=== PATIENT | female | born 1955 | race Caucasian/White ===

== ENCOUNTER 2017-03-22 15:25 | Emergency (ER) | payer SELFPAY ==
[~2017-03-22] VITALS: Ht 162.6 cm; Wt 78.5 kg
[~2017-03-22 15:25] MED LIST: BEN50 PO; BUPR100T14 PO; IBUP800T25 PO; NIFE30TA60 PO
[2017-03-22 15:41] VITALS: Ht 162.6 cm; Wt 78.5 kg
== END 2017-03-22 23:25 | disposition left against medical advice (07) ==
LOC: E/R 15:25
DX: Z53.21 Procedure and treatment not carried out due to patient leaving prior to being seen by health care provider (principal)

== ENCOUNTER 2017-07-03 11:24 | Emergency (ER) | payer OTHER ==
[~2017-07-03] VITALS: Ht 154.9 cm; Wt 77.0 kg
[2017-07-03 11:29] VITALS: Ht 154.9 cm; Wt 77.0 kg
[2017-07-03] MEDS ORDERED: HYD25 PO (17:30)
[2017-07-03] MEDS ORDERED: OXYCODONE/ACETAMINOPHEN (5/325) TAB PO ONE (17:30)
[2017-07-03] MEDS ORDERED: NIFE30TA60 PO (17:30)
[2017-07-03] MEDS ORDERED: NICARDipine HCL 30 MG CAPSULE PO ONE (17:30)
--- NOTE | 2017-07-03 17:46 | ERD ---
ER Documentation Chief Complaint Date/Time DATE: 07/03/17 TIME: 17:42 Chief Complaint SEND BY PCP , LEFT LOWER QUADRANT PAIN, BLOATED; AND HIGH BLOOD PRESSURE HPI 61-year-old woman here for antihypertensive medication refill. She has a long history of hypertension but ran out of her medications a few weeks ago. Patient also has a history of chronic pain and wants a prescription for opioid analgesics. She denies abdominal pain, no fevers or chills, no chest pain or shortness of breath, no headache or blurry vision. ROS All systems reviewed and are negative except as per history of present illness. Medications Home Meds Active Scripts Nifedipine* (Nifedipine ER*) 30 Mg Tablet.sa, 30 MG PO DAILY, #30 TAB.SA Prov:PORTIA GLOVER MD 07/03/17 Hydrochlorothiazide* (Hydrochlorothiazide*) 25 Mg Tab, 25 MG PO DAILY, #30 TAB Prov:PORTIA GLOVER MD 07/03/17 Ibuprofen* (Motrin*) 800 Mg Tab, 800 MG PO Q6H Y for PAIN AND OR ELEVATED TEMP, #30 TAB Prov:YANELY AGUIRRE SORTER LAUNDRY ARTICLES 06/05/15 Reported Medications Bupropion Hcl* (Bupropion Hcl*) 100 Mg Tablet, 100 MG PO TID, TAB 07/29/14 Diphenhydramine Hcl* (Benadryl*) 50 Mg Cap, 50 MG PO HS for ITCHING, CAP 07/29/14 Nifedipine* (Nifedipine ER*) 30 Mg Tablet.sa, 30 MG PO DAILY, TAB.SA 07/29/14 Allergies Allergies: Coded Allergies: fentanyl (Verified Allergy, Unknown, 07/29/14) HALLUCINATION risperidone (Verified Allergy, Unknown, 07/29/14) PMhx/Soc Psychiatric illness, hypertension, chronic pain History of Surgery: Yes (TOBAL LIGATION; C SECTION) Anesthesia Reaction: No Hx Neurological Disorder: No Hx Respiratory Disorders: No Hx Cardiac Disorders: Yes (HTN) Hx Psychiatric Problems: No Hx Miscellaneous Medical Probl: No Hx Alcohol Use: No Hx Substance Use: No Hx Tobacco Use: Yes Smoking Status: Never smoker FmHx Family History: No diabetes Physical Exam Vitals Vital Signs Date Time Temp Pulse Resp B/P Pulse Ox O2 Delivery O2 Flow Rate FiO2 07/03/17 13:24 76 180/109 07/03/17 11:29 98.3 83 19 193/96 97 Physical Exam GENERAL: Well-developed, well-nourished, well-hydrated, in no apparent distress , looks nontoxic in appearance HEENT: Moist mucous membranes, pink conjunctiva, no cervical spine tenderness or step-off deformities, no goiter, no jaundice or icterus, extraocular movements intact without pain. No submandibular induration, and no pharyngeal erythema NEURO: Alert and oriented 3, cranial nerves II through XII intact bilaterally, pupils equal round reactive to light, no focal deficits or facial asymmetry, sensation intact distally Strength 5/5 in upper and lower extremities bilaterally CARDIAC: Regular rate and rhythm, no murmurs rubs or gallops LUNGS: Clear bilaterally no wheezing crackles or stridor ABDOMEN: Soft nontender, no guarding, no rigidity, no rebound, no psoas sign no obturator sign. Normoactive bowel sounds SKIN: Warm and dry to touch, no abrasions, contusions, or hematomas, no lacerations, no ecchymosis, no target lesions, and without ulcers EXTREMITIES: No clubbing cyanosis or edema, calves are bilaterally symmetrical, no Homans sign, no popliteal cord sign. Distal pulses equal and bilateral PSYCH: Normal affect without agitation or irritability Results 24 hrs Current Medications Medications (Trade) Dose Ordered Sig/Adela Route PRN Reason Start Time Stop Time Status Last Admin Dose Admin Oxycodone/ Acetaminophen (Percocet (5/ 325)) 1 tab ONCE ONCE PO 07/03/17 17:30 07/03/17 17:31 DC 07/03/17 17:37 Clonidine (Catapres) 0.1 mg ONCE ONCE PO 07/03/17 17:30 07/03/17 17:31 DC 07/03/17 17:37 Nicardipine HCl (Cardene) 30 mg ONCE ONCE PO 07/03/17 17:30 07/03/17 17:31 DC 07/03/17 17:37 Procedures/MDM Patient was placed on director of cardiac rehabilitation rhythm strip revealed a sinus rhythm at about 80 bpm with upright P and T waves. Patient was afebrile. I administered Percocet 1 tablet p.o. for chronic pain, clonidine 0.1 mg p.o. and nicardipine 30 mg p.o. for hypertension with an initial diastolic blood pressure of over use of mercury. EKG performed, read by me revealed a normal sinus rhythm at 77 bpm, left axis deviation and a right bundle branch block, no concerning ST elevations or depressions noted. Patient's blood pressure improved, systolic diastolic pressures fell over 20 points, patient remains asymptomatic and has no complaints of pain at this time. She will be discharged to follow-up with PMD for continued outpatient management. Differential diagnoses considered, included but not limited to acute coronary syndrome, pulmonary embolism, aortic dissection, abdominal aortic aneurysm, sepsis, stroke, meningitis, encephalitis, pneumonia, appendicitis, cholecystitis , bowel obstruction, pyelonephritis, nephrolithiasis, cystitis, as well as metabolic, hematologic, and electrolyte abnormalities. As well as abscess, cellulitis, fractures, and dislocations. Patient feels much better at this time, and vital signs are normal, symptoms have improved. I did give strict instructions to return to the ED if symptoms continue or worsen, patient will otherwise follow-up with primary care physician. Patient understood instructions and agreed to plan. Disclaimer: Inadvertent spelling and grammatical errors are likely due to EHR/ dictation software use and do not reflect on the overall quality of patient care. Also, please note that the electronic time recorded on this note does not necessarily reflect the actual time of the patient encounter. Departure Diagnosis: Primary Impression: Hypertensive crisis Additional Impression: Chronic pain Chronic pain type: chronic pain syndrome Qualified Code: G89.4 - Chronic pain syndrome Condition: Good Patient Instructions: High Blood Pressure (Hypertension) PORTIA GLOVER MD Jul 03, 2017 17:46
[2017-07-03 17:50] VITALS: BP 170/98; PULSE 72; RESP 18; TEMP 98
== END 2017-07-03 17:58 | disposition home or self-care (01) ==
LOC: E/R 11:24
DX: I16.9 Hypertensive crisis, unspecified (principal); G89.4 Chronic pain syndrome; I10 Essential (primary) hypertension; Z87.891 Personal history of nicotine dependence
CPT/HCPCS: Z7502; Z7610

== ENCOUNTER 2017-07-15 12:23 | Emergency (ER) | payer OTHER ==
[~2017-07-15] VITALS: Ht 160 cm; Wt 89.0 kg
[~2017-07-15 12:23] MED LIST changes: +HYDR25TA6 PO
[2017-07-15 12:28] VITALS: Ht 160 cm; Wt 89.0 kg
[2017-07-15] MEDS ORDERED: HYDROCODONE/APAP (5/325) TAB PO ONE ×2 (17:30→21:00)
--- NOTE | 2017-07-15 17:39 | ERD ---
ER Documentation Chief Complaint Date/Time DATE: 07/15/17 TIME: 17:36 Chief Complaint PELVIC PAIN X 2 MOS HPI Patient is a 61-year-old female who presents to the ER after having a hysteroscopy today to investigate chronic pelvic pain for the last 2 months. She reports having subjective fevers at night, as well as intermittent vomiting over the last 2 months. She denies vaginal discharge or dysuria. She had a scheduled hysteroscopy, and states that the physician performing the procedure, Dr. Garcia, commented that it appeared that she had infection in the uterus. The procedure was performed at [facility]. ROS All systems reviewed and are negative except as per history of present illness. Medications Home Meds Active Scripts Tramadol HCl (Tramadol HCl) 50 Mg Tablet, 50 MG PO Q6 Y for PAIN, #14 TAB Prov:JENNIFER EUBANKS MD 07/15/17 Nifedipine* (Nifedipine ER*) 30 Mg Tablet.sa, 30 MG PO DAILY, #30 TAB.SA Prov:PORTIA GLOVER MD 07/03/17 Hydrochlorothiazide* (Hydrochlorothiazide*) 25 Mg Tab, 25 MG PO DAILY, #30 TAB Prov:PORTIA GLOVER MD 07/03/17 Reported Medications Albuterol Sulfate (Proair Respiclick) 90 Mcg Aer.pow.ba, 1 PUFF INHALATION Q4 Y for NEEDED, #1 BOTTLE 07/15/17 Vitamin B Complex (Vitamin B Complex) 1 Each Capsule, 1 EACH PO DAILY, CAP 07/15/17 Discontinued Reported Medications Bupropion Hcl* (Bupropion Hcl*) 100 Mg Tablet, 100 MG PO TID, TAB 07/29/14 Diphenhydramine Hcl* (Benadryl*) 50 Mg Cap, 50 MG PO HS for ITCHING, CAP 07/29/14 Nifedipine* (Nifedipine ER*) 30 Mg Tablet.sa, 30 MG PO DAILY, TAB.SA 07/29/14 Discontinued Scripts Ibuprofen* (Motrin*) 800 Mg Tab, 800 MG PO Q6H Y for PAIN AND OR ELEVATED TEMP, #30 TAB Prov:YANELY AGUIRRE ALLOCATIONS CLERK 06/05/15 Allergies Allergies: Coded Allergies: fentanyl (Verified Allergy, Unknown, 07/15/17) HALLUCINATION risperidone (Verified Allergy, Unknown, 07/15/17) PMhx/Soc Past medical history: Unknown cardiac disorder, hypertension, chronic pain syndrome Past surgical history: Ectopic 2 Social history: Smokes cigarettes, denies alcohol or illicit drugs History of Surgery: Yes (TOBAL LIGATION; C SECTION) Anesthesia Reaction: No Hx Neurological Disorder: No Hx Respiratory Disorders: No Hx Cardiac Disorders: Yes (HTN) Hx Psychiatric Problems: No Hx Miscellaneous Medical Probl: No Hx Alcohol Use: No Hx Substance Use: No Hx Tobacco Use: Yes FmHx Family History: No coronary disease, No diabetes Physical Exam Vitals Vital Signs Date Time Temp Pulse Resp B/P Pulse Ox O2 Delivery O2 Flow Rate FiO2 07/15/17 22:24 89 16 145/86 98 Room Air 07/15/17 20:26 98 16 154/91 97 Room Air 07/15/17 12:28 98.0 100 18 159/89 99 Physical Exam Const: Alert, appears slightly anxious Head: Atraumatic Eyes: Normal Conjunctiva, No pallor, no icterus ENT: Normal External Ears, Nose and Mouth.These membranes moist Neck: Full range of motion..~ No meningismus. Resp: Clear to auscultation bilaterally, No wheezes, no rales Cardio: Regular rate and rhythm, no murmurs Abd: Soft, No tenderness with distraction, no guarding or rebound, nondistended Pelvic: Normal vaginal mucosa, normal cervix with closed office, no discharge or tenderness. Skin: No petechiae or rashes Back: No midline or flank tenderness Ext: No cyanosis, or edema Neur: Awake and alert, Cranial nerves II through XII intact bilaterally, strength and sensation full in 4 extremities. Psych: Normal Mood and Affect Result Diagram: 07/15/17 1748 07/15/17 1748 Results 24 hrs Laboratory Tests Test 07/15/17 17:48 07/15/17 17:50 White Blood Count 5.610^3/ul Red Blood Count 4.1410^6/ul Hemoglobin 14.2g/dl Hematocrit 39.1% Mean Corpuscular Volume 94.4fl Mean Corpuscular Hemoglobin 34.3pg Mean Corpuscular Hemoglobin Concent 36.3g/dl Red Cell Distribution Width 11.2% Platelet Count 22972^3/UL Mean Platelet Volume 10.5fl Neutrophils % 57.5% Lymphocytes % 31.0% Monocytes % 8.0% Eosinophils % 2.7% Basophils % 0.4% Nucleated Red Blood Cells % 0.0/100WBC Neutrophils # 3.210^3/ul Lymphocytes # 1.710^3/ul Monocytes # 0.510^3/ul Eosinophils # 0.210^3/ul Basophils # 0.010^3/ul Nucleated Red Blood Cells # 0.010^3/ul Sodium Level 139mmol/L Potassium Level 3.3mmol/L Chloride Level 100mmol/L Carbon Dioxide Level 24mmol/L Anion Gap 18 Blood Urea Nitrogen 16mg/dl Creatinine 0.92mg/dl Glucose Level 95mg/dl Calcium Level 9.9mg/dl Urine Color YELLOW Urine Clarity CLEAR Urine pH 6.0 Urine Specific [place] 1.006 Urine Ketones NEGATIVEmg/dL Urine Nitrite NEGATIVEmg/dL Urine Bilirubin NEGATIVEmg/dL Urine Urobilinogen 1+mg/dL Urine Leukocyte Esterase NEGATIVELeu/ul Urine Hemoglobin NEGATIVEmg/dL Urine Glucose NEGATIVEmg/dL Urine Total Protein NEGATIVEmg/dl Current Medications Medications (Trade) Dose Ordered Sig/Adela Route PRN Reason Start Time Stop Time Status Last Admin Dose Admin Acetaminophen/ Hydrocodone Bitart (Norris (5/325)) 1 tab ONCE ONCE PO 07/15/17 17:30 07/15/17 17:33 DC 07/15/17 17:45 Acetaminophen/ Hydrocodone Bitart (Norris (5/325)) 1 tab ONCE ONCE PO 07/15/17 21:00 07/15/17 21:01 DC 07/15/17 20:35 Potassium Chloride (Klor-Con 20) 20 meq ONCE STAT PO 07/15/17 20:31 07/15/17 20:34 DC 07/15/17 20:34 Procedures/MDM MDM: Patient is a 61-year-old female who presents with 2 months of pelvic pain. She states that she had a hysteroscopy today and was sent to the ER due to concern for possible infection in the uterus. I attempted to contact the physician performing the procedure, but the clinic was closed and I was unable to contact him. The patient does not have any fevers, has a benign pelvic exam and wet mount without any WBCs. She has normal white blood cell count. Urinalysis is negative. Ultrasound shows atrophic endometrium with slight thickening. Given the patient's chronicity of symptoms and lack of objective findings to suggest infection, I believe the patient is stable for further workup and treatment as an outpatient. I advised her to call Dr. Garcia tomorrow to discuss these findings and to arrange for further care. If the patient does require further care as an inpatient, advised that her specialist contact the ER to explain why she cannot receive further workup and treatment as an outpatient. I do not see any indication for antibiotics at this time. The patient does have for prior narcotic prescriptions in [place]. I will give her a short course of tramadol approximately 3 days for pain. Departure Diagnosis: Primary Impression: Pelvic pain in female Condition: Stable JENNIFER EUBANKS MD Jul 15, 2017 17:39
[2017-07-15 18:03] LABS: BASOPHILS % 0.4 % (0.0-2.0); EOSINOPHILS # 0.2 10^3/ul (0.0-0.5); EOSINOPHILS % 2.7 % (0.0-7.0); HEMATOCRIT 39.1 % (37.0-47.0); HEMOGLOBIN 14.2 g/dl (12.0-16.0); LYMPHOCYTES # 1.7 10^3/ul (0.8-2.9); MEAN CORPUSCULAR HEMOGLOBIN 34.3 pg (29.0-33.0); MEAN CORPUSCULAR HGB CONC 36.3 g/dl (32.0-37.0); MEAN CORPUSCULAR VOLUME 94.4 fl (82.0-101.0); MEAN PLATELET VOLUME 10.5 fl (7.4-10.4); MONOCYTE # 0.5 10^3/ul (0.3-0.9); NEUTROPHIL # 3.2 10^3/ul (1.6-7.5); NEUTROPHILS % 57.5 % (39.0-77.0); PLATELET COUNT 162 10^3/UL (140-415); RED BLOOD COUNT 4.14 10^6/ul (4.20-5.40); RED CELL DISTRIBUTION WIDTH 11.2 % (11.5-14.5); WHITE BLOOD COUNT 5.6 10^3/ul (4.8-10.8)
[2017-07-15 18:11] LABS: ADD UMIC NO; UR ASCORBIC ACID NEGATIVE (NEGATIVE); UR BILIRUBIN (Dip) NEGATIVE (NEGATIVE); UR BLOOD (Dip) NEGATIVE (NEGATIVE); UR CLARITY CLEAR (CLEAR); UR COLOR YELLOW (YELLOW); UR GLUCOSE (Dip) NEGATIVE (NEGATIVE); UR KETONES (Dip) NEGATIVE (NEGATIVE); UR LEUKOCYTE ESTERASE (Dip) NEGATIVE Leu/ul (NEGATIVE); UR NITRITE (Dip) NEGATIVE (NEGATIVE); UR SPECIFIC GRAVITY (Dip) 1.006 (1.003-1.030); UR TOTAL PROTEIN (Dip) NEGATIVE (NEGATIVE); UR UROBILINOGEN (Dip) 1+ mg/dL (NEGATIVE)
[2017-07-15 18:26] LABS: CALCIUM 9.9 mg/dl (8.4-10.2); CREATININE 0.92 mg/dl (0.44-1.00); POTASSIUM 3.3 mmol/L (3.5-5.1)
[2017-07-15] MEDS ORDERED: VITA1CAP PO (18:59)
[2017-07-15] MEDS ORDERED: ALBU90AE INHALATION (19:00)
--- NOTE | 2017-07-15 19:17 | RADRPT ---
PROCEDURE: Pelvic ultrasound. CLINICAL INDICATION: Pelvic pain TECHNIQUE: Liu scale, color doppler, spectral doppler ultrasound of the pelvis was performed with transabdominal and transvaginal transducers. COMPARISON: No prior studies are available for comparison. FINDINGS: Uterus: Position: Anteverted. Normal myometrial echogenicity. Normal appearance of the endometrium. Ovaries: Not visualized by the project construction manager. Free fluid: None. Measurements: Endometrium (cm): 0.5 Uterus (cm): 5.1 x 2.1 x 2.2 IMPRESSION: Atrophic appearance of the uterus with upper limits of normal endometrial thickness. Ovaries not identified by the project construction manager. RPTAT: AADD .Pierre Thompson MD, MD Date Time Electronically viewed and signed by .Pierre Thompson MD, on 07/15/2017 19:17 .B/
[2017-07-15] MEDS ORDERED: POTASSIUM CHLORIDE (SR) 20 MEQ TAB PO STA (20:31)
[2017-07-15 22:24] VITALS: BP 145/86; PULSE 89; RESP 16
[2017-07-15] MEDS ORDERED: TRAM50TA2 PO (22:45)
== END 2017-07-16 00:05 | disposition home or self-care (01) ==
LOC: E/R 12:23
DX: R10.2 Pelvic and perineal pain (principal); I10 Essential (primary) hypertension; F17.210 Nicotine dependence, cigarettes, uncomplicated
CPT/HCPCS: 36415; 76830; 76856; 80048; 81003; 85025; 87081; 87210; 87220; Z7502; Z7610

== ENCOUNTER 2017-08-04 00:31 | Inpatient (IN) | payer OTHER ==
[~2017-08-04] VITALS: Ht 154.9 cm; Wt 76.0 kg
[~2017-08-04 00:31] MED LIST changes: +ALBU90AE INHALATION; -BEN50 PO; -BUPR100T14 PO; -IBUP800T25 PO; +TRAM50TA2 PO; +VITA1CAP PO
[2017-08-04 00:35] VITALS: BP 138/73; PULSE 110; RESP 19
[2017-08-04 01:27] VITALS: Ht 154.9 cm; Wt 76.0 kg
[2017-08-04] MEDS: LORAZEPAM 1 MG TAB PO PRN ×2 (02:14→21:08)
[2017-08-04] MEDS: ACETAMINOPHEN 325 MG TAB PO PRN ×3 (02:14→16:58)
[2017-08-04 05:39] LABS: BASOPHILS % 0.3 % (0.0-2.0); HEMATOCRIT 38.2 % (37.0-47.0); HEMOGLOBIN 13.5 g/dl (12.0-16.0); LYMPHOCYTES # 0.7 10^3/ul (0.8-2.9); LYMPHOCYTES % 6.2 % (15.0-51.0); MEAN CORPUSCULAR HEMOGLOBIN 33.9 pg (29.0-33.0); MEAN CORPUSCULAR HGB CONC 35.3 g/dl (32.0-37.0); MEAN PLATELET VOLUME 10.6 fl (7.4-10.4); MONOCYTE # 0.6 10^3/ul (0.3-0.9); MONOCYTES % 5.3 % (0.0-11.0); NEUTROPHILS % 87.8 % (39.0-77.0); PLATELET COUNT 141 10^3/UL (140-415); RED BLOOD COUNT 3.98 10^6/ul (4.20-5.40); RED CELL DISTRIBUTION WIDTH 11.5 % (11.5-14.5); WHITE BLOOD COUNT 11.4 10^3/ul (4.8-10.8)
[2017-08-04 06:13] LABS: ALBUMIN 3.7 g/dl (3.3-4.9); ALBUMIN/GLOBULIN RATIO 0.94; BILIRUBIN,INDIRECT 1.1 mg/dl (0-1.1); BILIRUBIN,TOTAL 1.1 mg/dl (0.2-1.3); CALCIUM 8.5 mg/dl (8.4-10.2); CREATININE 0.58 mg/dl (0.44-1.00); PHOSPHORUS 3.1 mg/dl (2.5-4.9); POTASSIUM 3.2 mmol/L (3.5-5.1); TOTAL PROTEIN 7.6 g/dl (6.1-8.1)
[2017-08-04 06:28] LABS: MAGNESIUM 0.8 mg/dl (1.7-2.5)
[2017-08-04] MEDS ORDERED: POTASSIUM CHLORIDE (SR) 20 MEQ TAB PO STA (06:47)
--- NOTE | 2017-08-04 06:54 | HP ---
Date/Time of Note Date/Time of Note DATE: 08/04/17 TIME: 06:51 Assessment/Plan VTE Prophylaxis VTE Prophylaxis Intervention: SCD's Lines/Catheters IV [facility]ter Type (from [facility] Saline Lock Urinary Cath still in place: No Assessment/Plan Assessment/Plan 1. UTI with probable pyelonephritis -Check UA, urine culture and blood culture -IV antibiotic -Renal ultrasound -Pain management 2. Alcohol intoxication/withdrawal -IVF, Banana bag - Librium -as needed Ativan 3.Severe hypomagnesemia -Replete 4. Hypokalemia -Replete 5. History of hypertension -Continue antihypertensives adjustment as needed HPI/ROS Admit Date/Time Admit Date/Time Aug 04, 2017 at 00:31 Hx of Present Illness This is a 61-year-old female with a history of hypertension, alcohol abuse and left eye blindness who initially presented on outside hospital complaining of dysuria and flank pain. Patient was diagnosed with pyelonephritis and was transferred to [facility] for insurance reason. She had a temp of 102, WBC was 8.5. She also reported that she had been drinking vodka on a daily basis and now she has been feeling anxious and tremors PMH/Family/Social Past Medical History Medical History: hypertension Social History Alcohol Use: occasionally Smoking Status: Unknown if ever smoked Drug Use: none Exam/Review of Systems Vital Signs Vitals Vital Signs Date Time Temp Pulse Resp B/P Pulse Ox O2 Delivery O2 Flow Rate FiO2 08/04/17 00:35 100.2 110 19 138/73 95 Room Air Intake and Output 08/03/17 08/03/17 08/04/17 15:00 23:00 07:00 Intake Total 700 ml Balance 700 ml Exam Constitutional: alert, oriented, well developed Head: atraumatic, normocephalic Eyes: EOMI, PERRL Respiratory: clear to auscultation, normal air movement Cardiovascular: nl pulses, regular rate and rhythm Gastrointestinal: soft Extremities: normal pulses Labs Result Diagram: 08/04/1743108/04/17431 Medications Medications Current Medications Hydrochlorothiazide (Hydrochlorothiazide) 25 mg DAILY PO ; Start 08/04/17 at 09 :00 Nifedipine 30 mg 30 mg DAILY PO ; Start 08/04/17 at 09:00 Ceftriaxone Sodium (Rocephin) 50 ml @ 100 mls/hr BID IVPB ; Start 08/04/17 at 09:00 Lorazepam (Ativan) 1 mg Q6H PRN PO ANXIETY Last administered on 08/04/17 02: 14; Admin Dose 1 MG; Start 08/04/17 at 02:00 Morphine Sulfate (morphine) 3 mg Q4H PRN IV PAIN; Start 08/04/17 at 02:00 Heparin Sodium (Porcine) (Heparin (5000 Units/0.5 ml)) 5,000 unit BID SC ; Start 08/04/17 at 09:00 Acetaminophen (Tylenol Tab) 650 mg Q6H PRN PO PAIN AND OR ELEVATED TEMP Last administered on 08/04/17 02:14; Admin Dose 650 MG; Start 08/04/17 at 02:00 RANDALL HUTTON MD Aug 04, 2017 06:54
[2017-08-04 07:59] VITALS: BP 161/89; RESP 19
[2017-08-04] MEDS ORDERED: MAGNESIUM SULFATE IV ONE (08:00)
[2017-08-04] MEDS ORDERED: SOD CHLORIDE 0.9% IV ONE (08:00)
[2017-08-04] MEDS: LORAZEPAM 2 MG INJ IV PRN ×4 (08:10→17:40)
[2017-08-04 08:27] LABS: ADD UMIC YES; UR ASCORBIC ACID NEGATIVE (NEGATIVE); UR BILIRUBIN (Dip) NEGATIVE (NEGATIVE); UR BLOOD (Dip) NEGATIVE (NEGATIVE); UR CLARITY CLEAR (CLEAR); UR COLOR YELLOW (YELLOW); UR GLUCOSE (Dip) NEGATIVE (NEGATIVE); UR KETONES (Dip) NEGATIVE (NEGATIVE); UR LEUKOCYTE ESTERASE (Dip) TRACE Leu/ul (NEGATIVE); UR NITRITE (Dip) NEGATIVE (NEGATIVE); UR RBC 1 /HPF (0-5); UR SPECIFIC GRAVITY (Dip) 1.008 (1.003-1.030); UR TOTAL PROTEIN (Dip) NEGATIVE (NEGATIVE); UR UROBILINOGEN (Dip) 1+ mg/dL (NEGATIVE)
--- NOTE | 2017-08-04 08:43 | RADRPT ---
PROCEDURE: Retroperitoneal US. CLINICAL INDICATION: Flank pain, pyelonephritis TECHNIQUE: Multiple sonographic images of the kidneys and retroperitoneum were obtained. The imag es were reviewed on a PACS workstation. COMPARISON: No prior studies are available for comparison. FINDINGS: The kidneys are normal in size, contour, cortical thickness and cortical echogenicity. The right kidney measures 10.6 cm. The left kidney measures 11.1 cm. No kidney stones are visualized. There is minimal right-sided hydronephrosis. The urinary bladder is decompressed and not well seen. RPTAT: AA IMPRESSION: Minimal right-sided hydronephrosis. .Ankush Sands MD, MD Date Time Electronically viewed and signed by .Ankush Sands MD, on 08/04/2017 08:42 .S/
[2017-08-04] MEDS: NIFEdipine (XL) 30 MG TAB PO SCH (09:00)
[2017-08-04] MEDS: HYDROCHLOROTHIAZIDE 25 MG TAB PO SCH (09:00)
[2017-08-04] MEDS ORDERED: MULTIVITAMINS 10 ML, THIAMINE 100 MG, FOLIC ACID 1 MG in SOD CHLORIDE 0.9% 1,000 ML IVPB SCH (09:00)
[2017-08-04] MEDS: CHLORDIAZEPOXIDE 25 MG CAP PO SCH ×2 (09:00→12:38)
[2017-08-04] MEDS: CEFTRIAXONE 1 GM/50 ML (PMX) 50 ML IVPB SCH ×2 (09:01→21:07)
[2017-08-04] MEDS: HEPARIN 5,000 UNIT/0.5 ML VIAL SC SCH ×2 (09:02→21:09)
[2017-08-04 14:00] VITALS: BP 137/72; RESP 78
--- NOTE | 2017-08-04 18:24 | PN ---
Date/Time of Note Date/Time of Note DATE: 08/04/17 TIME: 18:22 Assessment/Plan VTE Prophylaxis VTE Prophylaxis Intervention: SCD's Lines/Catheters [facility] Saline Lock Urinary Cath still in place: No Assessment/Plan Assessment/Plan 61 yo F transferred from OSH for pyelo, ?EtOH abuse. PLAN cont empiric ceftriaxone pending further culture data PRN benzos. of note, none of pt's frequent ER visit notes mention EtOH abuse. Will attempt to speak with pt tomorrow for clarification MVI/thiamine/folate Subjective 24 Hr Interval Summary Free Text/Dictation Pt sleeping very soundly at time of my attempted eval this afternoon Exam/Review of Systems Vital Signs Vitals Vital Signs Date Time Temp Pulse Resp B/P Pulse Ox O2 Delivery O2 Flow Rate FiO2 08/04/17 14:00 98.2 93 78 137/72 97 08/04/17 00:35 Room Air Intake and Output 08/03/17 08/03/17 08/04/17 15:00 23:00 07:00 Intake Total 700 ml Balance 700 ml Exam nad, sleeping resp nonlabored no abd distension no edema no rashes imaging with mild pyelo Results Result Diagram: 08/04/17 0432 08/04/17 0432 Results 24 hrs Laboratory Tests Test 08/04/17 04:32 08/04/17 06:00 White Blood Count 11.4 #H Red Blood Count 3.98 L Hemoglobin 13.5 Hematocrit 38.2 Mean Corpuscular Volume 96.0 Mean Corpuscular Hemoglobin 33.9 H Mean Corpuscular Hemoglobin Concent 35.3 Red Cell Distribution Width 11.5 Platelet Count 141 Mean Platelet Volume 10.6 H Neutrophils % 87.8 H Lymphocytes % 6.2 L Monocytes % 5.3 Eosinophils % 0.0 Basophils % 0.3 Nucleated Red Blood Cells % 0.0 Neutrophils # 10.0 H Lymphocytes # 0.7 L Monocytes # 0.6 Eosinophils # 0.0 Basophils # 0.0 Nucleated Red Blood Cells # 0.0 Sodium Level 141 Potassium Level 3.2 L Chloride Level 103 Carbon Dioxide Level 26 Anion Gap 15 Blood Urea Nitrogen 7 Creatinine 0.58 Glucose Level 141 Calcium Level 8.5 Phosphorus Level 3.1 Magnesium Level 0.8 *L Total Bilirubin 1.1 Direct Bilirubin 0.00 Indirect Bilirubin 1.1 Aspartate Amino Transf (AST/SGOT) 146 H Alanine Aminotransferase (ALT/SGPT) 152 H Alkaline Phosphatase 52 Total Protein 7.6 Albumin 3.7 Globulin 3.90 H Albumin/Globulin Ratio 0.94 Urine Color YELLOW Urine Clarity CLEAR Urine pH 7.0 Urine Specific [place] 1.008 Urine Ketones NEGATIVE Urine Nitrite NEGATIVE Urine Bilirubin NEGATIVE Urine Urobilinogen 1+ H Urine Leukocyte Esterase TRACE A Urine Microscopic RBC 1 Urine Microscopic WBC 25 H Urine Hemoglobin NEGATIVE Urine Glucose NEGATIVE Urine Total Protein NEGATIVE Medications Medications Current Medications Hydrochlorothiazide (Hydrochlorothiazide) 25 mg DAILY PO Last administered on 08/04/17 09:00; Admin Dose 25 MG; Start 08/04/17 at 09:00 Nifedipine 30 mg 30 mg DAILY PO Last administered on 08/04/17 09:00; Admin Dose 30 MG; Start 08/04/17 at 09:00 Ceftriaxone Sodium (Rocephin) 50 ml @ 100 mls/hr BID IVPB Last administered on 08/04/17 09:01; Admin Dose 100 MLS/HR; Start 08/04/17 at 09:00 Lorazepam (Ativan) 1 mg Q6H PRN PO ANXIETY Last administered on 08/04/17 02: 14; Admin Dose 1 MG; Start 08/04/17 at 02:00 Morphine Sulfate (morphine) 3 mg Q4H PRN IV PAIN; Start 08/04/17 at 02:00 Heparin Sodium (Porcine) (Heparin (5000 Units/0.5 ml)) 5,000 unit BID SC Last administered on 08/04/17 09:02; Admin Dose 5,000 UNIT; Start 08/04/17 at 09: 00 Acetaminophen (Tylenol Tab) 650 mg Q6H PRN PO PAIN AND OR ELEVATED TEMP Last administered on 08/04/17 16:58; Admin Dose 650 MG; Start 08/04/17 at 02:00 Chlordiazepoxide (Librium) 75 mg TID PO Last administered on 08/04/17 12:38; Admin Dose 75 MG; Start 08/04/17 at 09:00; Stop 08/05/17 at 08:59 Lorazepam (Ativan) 2 mg Q1H PRN IV etoh withdrawal Last administered on 17:40; Admin Dose 2 MG; Start 08/04/17 at 08:00 Folic Acid (Folic Acid) 1 mg DAILY PO ; Start 08/05/17 at 09:00 Thiamine HCl (Vitamin B1) 100 mg DAILY PO ; Start 08/05/17 at 09:00 Multivitamins Therapeutic (Theragran) 1 tab DAILY PO ; Start 08/05/17 at 09:00 KELLEN FAYE MD Aug 04, 2017 18:24
[2017-08-04 20:32] VITALS: BP 128/73; RESP 16
[2017-08-04] MEDS: morphine 4 MG/ML VIAL IV PRN (22:49)
[2017-08-05] MEDS: ACETAMINOPHEN 325 MG TAB PO PRN ×3 (01:43→15:56)
[2017-08-05 02:12] VITALS: BP 158/88; RESP 16
[2017-08-05] MEDS: morphine 4 MG/ML VIAL IV PRN ×3 (02:48→18:00)
[2017-08-05 06:50] LABS: CALCIUM 8.1 mg/dl (8.4-10.2); CREATININE 0.68 mg/dl (0.44-1.00); MAGNESIUM 1.7 mg/dl (1.7-2.5); PHOSPHORUS 2.4 mg/dl (2.5-4.9); POTASSIUM 3.4 mmol/L (3.5-5.1)
[2017-08-05 07:49] VITALS: BP 142/90; RESP 20
[2017-08-05] MEDS: NIFEdipine (XL) 30 MG TAB PO SCH (08:00)
[2017-08-05] MEDS: HYDROCHLOROTHIAZIDE 25 MG TAB PO SCH (08:00)
[2017-08-05] MEDS: CEFTRIAXONE 1 GM/50 ML (PMX) 50 ML IVPB SCH (08:01)
[2017-08-05] MEDS: THIAMINE 100 MG TAB PO SCH (08:03)
[2017-08-05] MEDS: MULTIVITAMINS THERAPEUTIC TAB PO SCH (08:03)
[2017-08-05] MEDS: FOLIC ACID 1 MG TAB PO SCH (08:03)
[2017-08-05] MEDS: HEPARIN 5,000 UNIT/0.5 ML VIAL SC SCH ×2 (08:07→22:10)
[2017-08-05] MEDS: LORAZEPAM 1 MG TAB PO PRN ×2 (09:21→15:56)
[2017-08-05 12:56] LABS: ADD UMIC NO; UR ASCORBIC ACID NEGATIVE (NEGATIVE); UR BILIRUBIN (Dip) NEGATIVE (NEGATIVE); UR BLOOD (Dip) NEGATIVE (NEGATIVE); UR CLARITY CLEAR (CLEAR); UR COLOR STRAW (YELLOW); UR GLUCOSE (Dip) NEGATIVE (NEGATIVE); UR KETONES (Dip) NEGATIVE (NEGATIVE); UR LEUKOCYTE ESTERASE (Dip) NEGATIVE Leu/ul (NEGATIVE); UR NITRITE (Dip) NEGATIVE (NEGATIVE); UR SPECIFIC GRAVITY (Dip) 1.004 (1.003-1.030); UR TOTAL PROTEIN (Dip) NEGATIVE (NEGATIVE); UR UROBILINOGEN (Dip) NEGATIVE (NEGATIVE)
[2017-08-05 14:08] VITALS: BP 139/71; RESP 20
--- NOTE | 2017-08-05 14:10 | PN ---
Date/Time of Note Date/Time of Note DATE: 08/05/17 TIME: 14:09 Assessment/Plan VTE Prophylaxis VTE Prophylaxis Intervention: SCD's Lines/Catheters IV [facility]ter Type (from [facility]): Saline Lock Urinary Cath still in place: No Assessment/Plan Assessment/Plan 61 yo F with pmhx chronic mental illness, EtOH abuse transferred from OSH ( capitation reasons) for pyelo. #pyelo: change abx to PO levoflox, 10 days of therapy #EtOH abuse: cont PRN benzos, add low dose librium pt with fever this AM, re cultured. sw to see for homelessness Subjective 24 Hr Interval Summary Free Text/Dictation requesting morphine for a migraine. affirmed she is homeless, not currently on any psychotropic meds, and has been drinking 1/2 of a 5th of EtOH for the past 3 years Exam/Review of Systems Vital Signs Vitals Vital Signs Date Time Temp Pulse Resp B/P Pulse Ox O2 Delivery O2 Flow Rate FiO2 08/05/17 14:08 98.3 100 20 139/71 96 08/04/17 00:35 Room Air Intake and Output 08/04/17 08/04/17 08/05/17 15:00 23:00 07:00 Intake Total 50 ml 3146 ml 1040 ml Balance 50 ml 3146 ml 1040 ml Exam missing L eye no mrg lungs clear abd soft no rashes Jonah Powell micro urine culture 10.15 GNRs: 30k CFUs S to all agents except ampillic. S to levo and cipro. Results Result Diagram: 08/04/17 0432 08/05/17 0523 Results 24 hrs Laboratory Tests Test 08/05/17 05:23 08/05/17 11:51 Sodium Level 136 Potassium Level 3.4 L Chloride Level 100 Carbon Dioxide Level 26 Anion Gap 13 Blood Urea Nitrogen 11 Creatinine 0.68 Glucose Level 98 # Calcium Level 8.1 L Phosphorus Level 2.4 L Magnesium Level 1.7 Urine Color STRAW Urine Clarity CLEAR Urine pH 7.0 Urine Specific [place] 1.004 Urine Ketones NEGATIVE Urine Nitrite NEGATIVE Urine Bilirubin NEGATIVE Urine Urobilinogen NEGATIVE Urine Leukocyte Esterase NEGATIVE Urine Hemoglobin NEGATIVE Urine Glucose NEGATIVE Urine Total Protein NEGATIVE Medications Medications Current Medications Hydrochlorothiazide (Hydrochlorothiazide) 25 mg DAILY PO Last administered on 08/05/17t 08:00; Admin Dose 25 MG; Start 08/04/17 at 09:00 Nifedipine 30 mg 30 mg DAILY PO Last administered on 08/05/17 08:00; Admin Dose 30 MG; Start 08/04/17 at 09:00 Ceftriaxone Sodium (Rocephin) 50 ml @ 100 mls/hr BID IVPB Last administered on 08/05/17 08:01; Admin Dose 100 MLS/HR; Start 08/04/17 at 09:00 Lorazepam (Ativan) 1 mg Q6H PRN PO ANXIETY Last administered on 08/05/17 09: 21; Admin Dose 1 MG; Start 08/04/17 at 02:00 Morphine Sulfate (morphine) 3 mg Q4H PRN IV PAIN Last administered on 11:55; Admin Dose 3 MG; Start 08/04/17 at 02:00 Heparin Sodium (Porcine) (Heparin (5000 Units/0.5 ml)) 5,000 unit BID SC Last administered on 08/05/17 08:07; Admin Dose 5,000 UNIT; Start 08/04/17 at 09: 00 Acetaminophen (Tylenol Tab) 650 mg Q6H PRN PO PAIN AND OR ELEVATED TEMP Last administered on 08/05/17 07:59; Admin Dose 650 MG; Start 08/04/17 at 02:00 Folic Acid (Folic Acid) 1 mg DAILY PO Last administered on 08/05/17 08:03; Admin Dose 1 MG; Start 08/05/17 at 09:00 Thiamine HCl (Vitamin B1) 100 mg DAILY PO Last administered on 08/05/17 08:03 ; Admin Dose 100 MG; Start 08/05/17 at 09:00 Multivitamins Therapeutic (Theragran) 1 tab DAILY PO Last administered on 08/05 08:03; Admin Dose 1 TAB; Start 08/05/17 at 09:00 KELLEN FAYE MD Aug 05, 2017 14:10
--- NOTE | 2017-08-05 14:14 | RADRPT ---
PROCEDURE: Chest radiograph CLINICAL INDICATION: Fever. COMPARISON: None relevant listed. TECHNIQUE: Single frontal chest radiograph. FINDINGS: The lungs are clear. No pleural effusion or focal parenchymal opacity. The cardiomediastinal silhouette is normal. No suspicious bone lesion. IMPRESSION: No acute cardiopulmonary abnormality. RPTAT: HH Physician James Date Time Electronically viewed and signed by Holley Vilchis Physician on 08/05/2017 14:14 LG/
[2017-08-05] MEDS ORDERED: ACET/BUTAL/CAFF TAB PO PRN (15:00)
[2017-08-05] MEDS: CHLORDIAZEPOXIDE 25 MG CAP PO SCH ×2 (15:13→22:07)
[2017-08-05] MEDS ORDERED: POTASSIUM CHLORIDE (SR) 20 MEQ TAB PO ONE (15:30)
[2017-08-05 20:45] VITALS: BP 138/86; RESP 16
[2017-08-06 02:18] VITALS: BP 133/81; RESP 16
[2017-08-06] MEDS: LORAZEPAM 1 MG TAB PO PRN ×3 (02:25→16:25)
[2017-08-06] MEDS: LEVOFLOXACIN 250 MG TAB PO SCH (06:15)
[2017-08-06 06:45] LABS: BASOPHILS % 0.2 % (0.0-2.0); EOSINOPHILS # 0.1 10^3/ul (0.0-0.5); HEMATOCRIT 39.1 % (37.0-47.0); HEMOGLOBIN 13.5 g/dl (12.0-16.0); LYMPHOCYTES % 23.3 % (15.0-51.0); MEAN CORPUSCULAR HEMOGLOBIN 32.7 pg (29.0-33.0); MEAN CORPUSCULAR HGB CONC 34.5 g/dl (32.0-37.0); MEAN CORPUSCULAR VOLUME 94.7 fl (82.0-101.0); MEAN PLATELET VOLUME 10.1 fl (7.4-10.4); MONOCYTE # 0.4 10^3/ul (0.3-0.9); MONOCYTES % 9.1 % (0.0-11.0); NEUTROPHIL # 2.7 10^3/ul (1.6-7.5); NEUTROPHILS % 64.9 % (39.0-77.0); PLATELET COUNT 130 10^3/UL (140-415); RED BLOOD COUNT 4.13 10^6/ul (4.20-5.40); RED CELL DISTRIBUTION WIDTH 11.4 % (11.5-14.5); WHITE BLOOD COUNT 4.1 10^3/ul (4.8-10.8)
[2017-08-06 07:50] LABS: ALANINE AMINOTRANSFERASE 95 IU/L (13-69); ALBUMIN 3.8 g/dl (3.3-4.9); ALKALINE PHOSPHATASE 56 IU/L (42-121); ANION GAP 17 (8-16); ASPARTATE AMINO TRANSFERASE 93 IU/L (15-46); BILIRUBIN,INDIRECT 0.5 mg/dl (0-1.1); BILIRUBIN,TOTAL 0.5 mg/dl (0.2-1.3); BLOOD UREA NITROGEN 11 mg/dl (7-20); CALCIUM 8.9 mg/dl (8.4-10.2); CARBON DIOXIDE 23 mmol/L (21-31); CHLORIDE 100 mmol/L (97-110); CREATININE 0.63 mg/dl (0.44-1.00); GLUCOSE 88 mg/dl (70-220); MAGNESIUM 1.1 mg/dl (1.7-2.5); POTASSIUM 3.6 mmol/L (3.5-5.1); SODIUM 136 mmol/L (135-144); TOTAL PROTEIN 7.6 g/dl (6.1-8.1)
[2017-08-06 08:00] VITALS: BP_SYST 117; BP_SYST 159; BP_DIAS 73; BP_DIAS 80; RESP 18
[2017-08-06 08:12] LABS: HEPATITIS B CORE ANTIBODY REACTIVE (NEGATIVE)
[2017-08-06] MEDS: CHLORDIAZEPOXIDE 25 MG CAP PO SCH (08:45)
[2017-08-06] MEDS: THIAMINE 100 MG TAB PO SCH (08:46)
[2017-08-06] MEDS: MULTIVITAMINS THERAPEUTIC TAB PO SCH (08:46)
[2017-08-06] MEDS: HYDROCHLOROTHIAZIDE 25 MG TAB PO SCH (08:46)
[2017-08-06] MEDS: HEPARIN 5,000 UNIT/0.5 ML VIAL SC SCH ×2 (08:46→21:00)
[2017-08-06] MEDS: NIFEdipine (XL) 30 MG TAB PO SCH (08:46)
[2017-08-06] MEDS: FOLIC ACID 1 MG TAB PO SCH (08:47)
[2017-08-06] MEDS ORDERED: MAGNESIUM SULFATE 2 GM/50 ML 50 ML IVPB ONE ×2 (12:30→14:30)
[2017-08-06] MEDS ORDERED: traMADol 50 MG TAB PO PRN (13:00)
--- NOTE | 2017-08-06 13:07 | PN ---
Date/Time of Note Date/Time of Note DATE: 08/06/17 TIME: 13:03 Assessment/Plan VTE Prophylaxis VTE Prophylaxis Intervention: SCD's Lines/Catheters IV Catheter Type (from [facility]): Saline Lock Urinary Cath still in place: No Assessment/Plan Assessment/Plan 61 yo F with pmhx chronic mental illness, EtOH abuse transferred from OSH ( capitation reasons) for pyelo. temperature improving #pyelo: changed abx to PO levoflox, 10 days of therapy #EtOH abuse: cont PRN benzos, weaning librium #transaminitis: likely 2/2 EtOH. pt also has HepC and resolved v chronic Hep B PT eval to help with dispo sw helping given homelessness Subjective 24 Hr Interval Summary Free Text/Dictation wants IV morphine Exam/Review of Systems Vital Signs Vitals Vital Signs Date Time Temp Pulse Resp B/P Pulse Ox O2 Delivery O2 Flow Rate FiO2 08/06/17 08:00 98.6 95 18 117/73 96 08/04/17 00:35 Room Air Intake and Output 08/05/17 08/05/17 08/06/17 15:00 23:00 07:00 Intake Total 50 ml 1700 ml 920 ml Balance 50 ml 1700 ml 920 ml Exam nad, sleepy no mrg lungsclear abdsoft no rashes Results Result Diagram: 08/06/1725 08/06/17 0625 Results 24 hrs Laboratory Tests Test 08/06/17 06:25 White Blood Count 4.1 #L Red Blood Count 4.13 L Hemoglobin 13.5 Hematocrit 39.1 Mean Corpuscular Volume 94.7 Mean Corpuscular Hemoglobin 32.7 Mean Corpuscular Hemoglobin Concent 34.5 Red Cell Distribution Width 11.4 L Platelet Count 130 L Mean Platelet Volume 10.1 Neutrophils % 64.9 Lymphocytes % 23.3 Monocytes % 9.1 Eosinophils % 2.0 Basophils % 0.2 Nucleated Red Blood Cells % 0.0 Neutrophils # 2.7 Lymphocytes # 1.0 Monocytes # 0.4 Eosinophils # 0.1 Basophils # 0.0 Nucleated Red Blood Cells # 0.0 Sodium Level 136 Potassium Level 3.6 Chloride Level 100 Carbon Dioxide Level 23 Anion Gap 17 H Blood Urea Nitrogen 11 Creatinine 0.63 Glucose Level 88 Calcium Level 8.9 Magnesium Level 1.1 L Total Bilirubin 0.5 Direct Bilirubin 0.00 Indirect Bilirubin 0.5 Aspartate Amino Transf (AST/SGOT) 93 H Alanine Aminotransferase (ALT/SGPT) 95 H Alkaline Phosphatase 56 Total Protein 7.6 Albumin 3.8 Globulin 3.80 H Albumin/Globulin Ratio 1.00 Hepatitis B Surface Antigen NEGATIVE Hepatitis B Surface Antibody NEGATIVE Hepatitis B Core Total Antibody REACTIVE H Hepatitis C Antibody REACTIVE H Medications Medications Current Medications Hydrochlorothiazide (Hydrochlorothiazide) 25 mg DAILY PO Last administered on 08/06/17 08:46; Admin Dose 25 MG; Start 08/04/17 at 09:00 Nifedipine (Procardia Xl) 30 mg DAILY PO Last administered on 08/06/17 08:46 ; Admin Dose 30 MG; Start 08/04/17 at 09:00 Lorazepam (Ativan) 1 mg Q6H PRN PO ANXIETY Last administered on 08/06/17 08: 54; Admin Dose 1 MG; Start 08/04/17 at 02:00 Heparin Sodium (Porcine) (Heparin (5000 Units/0.5 ml)) 5,000 unit BID SC Last administered on 08/05/17 22:10; Admin Dose 5,000 UNIT; Start 08/04/17 at 09: 00 Acetaminophen (Tylenol Tab) 650 mg Q6H PRN PO PAIN AND OR ELEVATED TEMP Last administered on 08/05/17 15:56; Admin Dose 650 MG; Start 08/04/17 at 02:00 Folic Acid (Folic Acid) 1 mg DAILY PO Last administered on 08/06/17 08:47; Admin Dose 1 MG; Start 08/05/17 at 09:00 Thiamine HCl (Vitamin B1) 100 mg DAILY PO Last administered on 08/06/17 08:46 ; Admin Dose 100 MG; Start 08/05/17 at 09:00 Multivitamins Therapeutic (Theragran) 1 tab DAILY PO Last administered on 08/06 08:46; Admin Dose 1 TAB; Start 08/05/17 at 09:00 Levofloxacin (Levaquin) 250 mg DAILY@06 PO Last administered on 08/06/17 06: 15; Admin Dose 250 MG; Start 08/06/17 at 06:00; Stop 08/16/17 at 05:59 Acetaminophen/ Butalbital/ Caffeine 1 tab 1 tab Q6H PRN PO headache Last administered on 08/05/17 20:09; Admin Dose 1 TAB; Start 08/05/17 at 15:00 Magnesium Sulfate (Magnesium Sulfate 2 Gm/50 ml) 50 ml @ 25 mls/hr ONCE ONCE IVPB ; Start 08/06/17 at 12:30; Stop 08/06/17 at 14:29 Tramadol HCl (Ultram) 50 mg Q6H PRN PO pain; Start 08/06/17 at 13:00; Status UNV KELLEN FAYE MD Aug 06, 2017 13:07
[2017-08-06 14:00] VITALS: BP 120/64; RESP 18
[2017-08-06 20:01] VITALS: BP 133/80; RESP 21
[2017-08-06] MEDS ORDERED: traZODone 50 MG TAB PO SCH (21:00)
[2017-08-07 02:14] VITALS: BP_SYST 118; BP_SYST 164; BP_DIAS 75; BP_DIAS 87; RESP 18
[2017-08-07] MEDS: LORAZEPAM 1 MG TAB PO PRN ×2 (04:17→10:17)
[2017-08-07] MEDS: LEVOFLOXACIN 250 MG TAB PO SCH (05:33)
[2017-08-07 06:24] LABS: ALBUMIN 3.7 g/dl (3.3-4.9); ALBUMIN/GLOBULIN RATIO 0.82; BILIRUBIN,INDIRECT 0.5 mg/dl (0-1.1); BILIRUBIN,TOTAL 0.5 mg/dl (0.2-1.3); CALCIUM 9.9 mg/dl (8.4-10.2); CREATININE 0.74 mg/dl (0.44-1.00); MAGNESIUM 1.5 mg/dl (1.7-2.5); POTASSIUM 3.7 mmol/L (3.5-5.1); TOTAL PROTEIN 8.2 g/dl (6.1-8.1)
[2017-08-07 08:00] VITALS: BP 138/64; RESP 18
[2017-08-07] MEDS: FOLIC ACID 1 MG TAB PO SCH (09:51)
[2017-08-07] MEDS: HYDROCHLOROTHIAZIDE 25 MG TAB PO SCH (09:52)
[2017-08-07] MEDS: THIAMINE 100 MG TAB PO SCH (09:53)
[2017-08-07] MEDS: NIFEdipine (XL) 30 MG TAB PO SCH (09:53)
[2017-08-07] MEDS: MULTIVITAMINS THERAPEUTIC TAB PO SCH (09:53)
[2017-08-07] MEDS: HEPARIN 5,000 UNIT/0.5 ML VIAL SC SCH (09:55)
[2017-08-07] MEDS ORDERED: MULTI PO (11:19)
[2017-08-07] MEDS ORDERED: Thiamine PO (11:19)
[2017-08-07] MEDS ORDERED: LEVO250T35 PO (11:19)
[2017-08-07] MEDS ORDERED: FOLI-49 PO (11:19)
--- NOTE | 2017-08-07 11:21 | PDOCDIS ---
Discharge Instructions CONDITION Patient Condition: Stable HOME CARE INSTRUCTIONS: Special Diet: Regular FOLLOW UP/APPOINTMENTS Follow-up Plan Use the community resources provided by the social media content specialist to get connected to a regular doctor and a mental health provider in the community KELLEN FAYE MD Aug 07, 2017 11:21
--- NOTE | 2017-08-07 11:26 | DS ---
Date/Time of Note Date/Time of Note DATE: 08/07/17 TIME: 11:26 Discharge Summary Admission/Discharge Info Admit Date/Time Aug 04, 2017 at 00:31 Discharge Date/Time Discharge Diagnosis pyelonephritis, hepatitis C, alcoholism Patient Condition: Guarded Procedures OSH urine culture: GNRs 30k-40k CFUs GNRs S to quinolones labs here HepC+, HepBcAb+, HepBsAb-, HepBsAg- Hx of Present Illness This is a 61-year-old female with a history of hypertension, alcohol abuse and left eye blindness who initially presented on outside hospital complaining of dysuria and flank pain. Patient was diagnosed with pyelonephritis and was transferred to [facility] for insurance reason. She had a temp of 102, WBC was 8.5. She also reported that she had been drinking vodka on a daily basis and now she has been feeling anxious and tremors Hospital Course 61 yo F with pmhx chronic mental illness, EtOH abuse transferred from OSH ( capitation reasons) for pyelo. OSH cultures returned with GNRs S to quinolones. Pt's abx narrowed to levoflox. Pt's last drink was day of arrival at OSH therefore she had been off of EtOH for ~4 days at time of discharge, had been tapered off of Librium. Pt seen by PT prior to discharge which deemed pt stable to ambulate independently. Pt also informed of hepatitis C diagnosis which was new information to the patient. Pt advised to f/u with a physical health doctor regarding her hepatitis C and a mental health provider for her alcohol abuse. copy of dc summary faxed to primary care clinic prior to dc Home Meds Active Scripts [Thiamine] 100 MG TAB No Conflict Check, 100 MG PO DAILY for 30 Days, #30 Prov:KELLEN FAYE MD 08/07/17 Multivitamins* (Theragran*) 1 Tab Tab, 1 TAB PO DAILY for 30 Days, #30 TAB Prov:KELLEN FAYE MD 08/07/17 Folic Acid* (Folic Acid*) 1 Mg Tablet, 1 MG PO DAILY for 30 Days, #30 TAB Prov:KELLEN FAYE MD 08/07/17 Levofloxacin* (Levaquin*) 250 Mg Tablet, 250 MG PO DAILY@06 for 8 Days, #8 TAB Prov:KELLEN FAYE MD 08/07/17 Tramadol HCl (Tramadol HCl) 50 Mg Tablet, 50 MG PO Q6 Y for PAIN, #14 TAB Prov:JENNIFER EUBANKS MD 07/15/17 Nifedipine* (Nifedipine ER*) 30 Mg Tablet.sa, 30 MG PO DAILY, #30 TAB.SA Prov:PORTIA GLOVER MD 07/03/17 Hydrochlorothiazide* (Hydrochlorothiazide*) 25 Mg Tab, 25 MG PO DAILY, #30 TAB Prov:PORTIA GLOVER MD 07/03/17 Reported Medications Vitamin B Complex (Vitamin B Complex) 1 Each Capsule, 1 EACH PO DAILY, CAP 07/15/17 Discontinued Reported Medications Albuterol Sulfate (Proair Respiclick) 90 Mcg Aer.pow.ba, 1 PUFF INHALATION Q4 Y for NEEDED, #1 BOTTLE 07/15/17 Follow-up Plan Use the community resources provided by the social media assistant to get connected to a regular doctor and a mental health provider in the community Primary Care Provider [facility] fax #: [phone] Time spent on discharge: > 30 minutes Pending Labs Laboratory Tests Test 08/07/17 04:24 Sodium Level 138mmol/L (135-144) Potassium Level 3.7mmol/L (3.5-5.1) Chloride Level 100mmol/L (97-110) Carbon Dioxide Level 27mmol/L (21-31) Anion Gap 15 (8-16) Blood Urea Nitrogen 16mg/dl (7-20) Creatinine 0.74mg/dl (0.44-1.00) Glucose Level 111mg/dl (70-220) Calcium Level 9.9mg/dl (8.4-10.2) Magnesium Level 1.5mg/dl (1.7-2.5) Total Bilirubin 0.5mg/dl (0.2-1.3) Direct Bilirubin 0.00mg/dl (0.00-0.20) Indirect Bilirubin 0.5mg/dl (0-1.1) Aspartate Amino Transf (AST/SGOT) 225IU/L (15-46) Alanine Aminotransferase (ALT/SGPT) 137IU/L (13-69) Alkaline Phosphatase 64IU/L (42-121) Total Protein 8.2g/dl (6.1-8.1) Albumin 3.7g/dl (3.3-4.9) Globulin 4.50g/dl (1.3-3.2) Albumin/Globulin Ratio 0.82 KELLEN FAYE MD Aug 07, 2017 11:26
[2017-08-07] MEDS ORDERED: MAGNESIUM OXIDE 400 MG TAB PO ONE (11:30)
== END 2017-08-07 12:00 | disposition home or self-care (01) | DRG 690 ==
LOC: PP2 00:31
PROVIDERS: ADMIT Internal Medicine; ATTEND Internal Medicine
DX: N10 Acute pyelonephritis (principal); B18.1 Chronic viral hepatitis B without delta-agent; B18.2 Chronic viral hepatitis C; F10.20 Alcohol dependence, uncomplicated; F29 Unspecified psychosis not due to a substance or known physiological condition; Z59.0 Homelessness
CPT/HCPCS: 71010; 76775; 80048; 80053; 81001; 81003; 83735; 84100; 85025; 86704; 86706; 86803; 87040; 87081; 87086; 87340; 97162; A4310; J0696; J1644; J2060; J2270; J3411; J3475; J7030; J7050

== ENCOUNTER 2017-08-13 13:53 | Emergency (ER) | payer OTHER ==
[~2017-08-13] VITALS: Ht 154.9 cm; Wt 74.5 kg
[~2017-08-13 13:53] MED LIST changes: -ALBU90AE INHALATION; +FOLI-49 PO; +LEVO250T35 PO; +MULTI PO; -TRAM50TA2 PO; +Thiamine PO
[2017-08-13 14:03] VITALS: Ht 154.9 cm; Wt 74.5 kg
[2017-08-13 14:07] VITALS: BP 135/70; PULSE 89; RESP 15; TEMP 98.3
--- NOTE | 2017-08-13 14:11 | ERD ---
ER Documentation Chief Complaint Chief Complaint PT WAS TASERED BY SECURITY [employer]ES[employer] FOR TRESPASSING, MARJORIE BROUGHT IN HPI This 61-year-old female who is in police custody brought to the emergency room for medical clearance for booking because she was trespassing when a security attendant tased her right upper arm. She stated that she had pain for a short time and the pain is now resolved. She did not lose consciousness, fall down or suffer any other injuries. He says in fact when she got to use it made her even matter. She denies any thoughts of harming herself or others. She has no other medical issues and currently does not have pain. Did not ever have chest pain or shortness of breath. ROS All systems reviewed and are negative except as per history of present illness. Medications Home Meds Active Scripts [Thiamine] 100 MG TAB No Conflict Check, 100 MG PO DAILY for 30 Days, #30 Prov:KELLEN FAYE MD 08/07/17 Multivitamins* (Theragran*) 1 Tab Tab, 1 TAB PO DAILY for 30 Days, #30 TAB Prov:KELLEN FAYE MD 08/07/17 Folic Acid* (Folic Acid*) 1 Mg Tablet, 1 MG PO DAILY for 30 Days, #30 TAB Prov:KELLEN FAYE MD 08/07/17 Levofloxacin* (Levaquin*) 250 Mg Tablet, 250 MG PO DAILY@06 for 8 Days, #8 TAB Prov:KELLEN FAYE MD 08/07/17 Nifedipine* (Nifedipine ER*) 30 Mg Tablet.sa, 30 MG PO DAILY, #30 TAB.SA Prov:PORTIA GLOVER MD 07/03/17 Hydrochlorothiazide* (Hydrochlorothiazide*) 25 Mg Tab, 25 MG PO DAILY, #30 TAB Prov:PORTIA GLOVER MD 07/03/17 Reported Medications Vitamin B Complex (Vitamin B Complex) 1 Each Capsule, 1 EACH PO DAILY, CAP 07/15/17 Discontinued Scripts Tramadol HCl (Tramadol HCl) 50 Mg Tablet, 50 MG PO Q6 Y for PAIN, #14 TAB Prov:JENNIFER EUBANKS MD 07/15/17 Allergies Allergies: Coded Allergies: fentanyl (Verified Allergy, Unknown, 07/15/17) HALLUCINATION risperidone (Verified Allergy, Unknown, 07/15/17) PMhx/Soc History of Surgery: Yes (Tubal ligation due ectopic pregnancies,left eye surg.) Anesthesia Reaction: No Hx Neurological Disorder: No Hx Respiratory Disorders: No Hx Cardiac Disorders: Yes (HTN) Hx Psychiatric Problems: No Hx Miscellaneous Medical Probl: Yes (See EMR, LEFT EYE BLINDNESS) Hx Alcohol Use: Yes (drink everyday with 2 bottle of vodka with her boyfriend. ) Hx Substance Use: Yes (last five years ago) Hx Tobacco Use: Yes Smoking Status: Current every day smoker Physical Exam Vitals Vital Signs Date Time Temp Pulse Resp B/P Pulse Ox O2 Delivery O2 Flow Rate FiO2 08/13/17 14:03 98.6 88 15 130/90 100 Physical Exam Const: [] No distress Head: Atraumatic Eyes: Normal Conjunctiva ENT: Normal External Ears, Nose and Mouth. Neck: Full range of motion.. No JVD Resp: Clear to auscultation bilaterally Cardio: Regular rate and rhythm, no murmurs Skin: No petechiae or rashes Back: No midline or flank tenderness Ext: No cyanosis, or edema, no tenderness to palpation, no visible injury, distal pulses intact all 4 extremities and full range of motion without pain. Manufacturing Engineer Supervisor strength 5 out of 5 bilateral upper extremities Neur: Awake and alert oriented 3, no focal deficits Psych: Normal Mood and Affect Procedures/MDM Evaluation for contact taser injury. This is not the type of days it has a dark. The patient has no difference in the skin appearance at the site of casing versus other skin. She no longer has pain. She has no other medical issues at this time. I am going to discharge her to the custody of police sections a follow-up with her primary care doctor next 1-2 days. Departure Diagnosis: Primary Impression: History of Taser shock Condition: Stable Patient Instructions: First Aid: Electrical Shocks Additional Instructions: Call your primary care doctor TOMORROW for an appointment during the next 1-2 days.See the doctor sooner or return here if your condition worsens before your appointment time. NUSRAT GOYAL DO Aug 13, 2017 14:11
== END 2017-08-13 14:25 | disposition home or self-care (01) ==
LOC: E/R 13:53
DX: T75.4XXA Electrocution, initial encounter (principal); F17.210 Nicotine dependence, cigarettes, uncomplicated; I10 Essential (primary) hypertension
CPT/HCPCS: 99282

== ENCOUNTER 2018-10-24 03:15 | Inpatient (IN) | payer OTHER ==
[~2018-10-24] VITALS: Ht 154.9 cm; Wt 77.7 kg
[~2018-10-24 03:15] MED LIST changes: +LEVO250T22 PO; -LEVO250T35 PO; +NIFE30TA23 PO; -NIFE30TA60 PO
[2018-10-24 05:00] VITALS: BP 178/101; PULSE 74; RESP 18
[2018-10-24] MEDS: morphine 4 MG/ML VIAL IV PRN ×3 (05:26→20:25)
[2018-10-24] MEDS ORDERED: ACETAMINOPHEN 325 MG TAB PO PRN (05:30)
[2018-10-24] MEDS ORDERED: KETOROLAC 30 MG INJ IV PRN (05:30)
[2018-10-24] MEDS ORDERED: NACL 0.9% 3 ML SYG IV SCH (05:30)
[2018-10-24] MEDS ORDERED: ONDANSETRON 4 MG INJ IV PRN (05:30)
[2018-10-24] MEDS ORDERED: ALBUTEROL/IPRATROPIUM (NEB) 3 ML AMP HHN PRN (05:30)
[2018-10-24] MEDS ORDERED: HYDROCODONE/APAP (5/325) TAB PO PRN (05:30)
[2018-10-24] MEDS: SOD CHLORIDE 0.9% 1,000 ML IV SCH ×2 (05:43→15:01)
[2018-10-24 06:27] VITALS: Ht 154.9 cm; Wt 77.7 kg
--- NOTE | 2018-10-24 06:55 | HP ---
Date/Time of Note Date/Time of Note DATE: 10/24/18 TIME: 06:51 Assessment/Plan VTE Prophylaxis Pharmacological prophylaxis: heparin Assessment/Plan Assessment/Plan 63-year-old female with a history of left eye blindness, alcoholism, hep C, pyelonephritis who initially presented to an outside hospital complaining of abdominal pain, transferred to [facility] for insurance reason after diagnosis of a cholecystitis and UTI PLAN N.p.o. with IV fluid IV antibiotic Obtain abdominal imaging to again evaluate for cholecystitis HIDA scan Pain management Follow-up urine culture results Folate, MVI and thiamine Check liver chemistries and lipase Result Diagram: 10/24/18 0545 Results 24hrs Laboratory Tests Test 10/24/18 05:45 White Blood Count Pending Red Blood Count Pending Hemoglobin Pending Hematocrit Pending Mean Corpuscular Volume Pending Mean Corpuscular Hemoglobin Pending Mean Corpuscular Hemoglobin Concent Pending Red Cell Distribution Width Pending Platelet Count Pending Mean Platelet Volume Pending Sodium Level 140 Potassium Level 4.2 Chloride Level 107 Carbon Dioxide Level 18 L Anion Gap 15 H Blood Urea Nitrogen 23 H Creatinine 1.06 H Est Glomerular Filtrat Rate mL/min 53 L Glucose Level 103 Calcium Level 9.1 Phosphorus Level 4.9 Magnesium Level 1.2 L Total Bilirubin 1.7 H Direct Bilirubin 0.10 Indirect Bilirubin 1.6 H Aspartate Amino Transf (AST/SGOT) 416 H Alanine Aminotransferase (ALT/SGPT) 183 H Alkaline Phosphatase 56 Total Protein 8.2 H Albumin 4.2 Globulin 4.00 H Albumin/Globulin Ratio 1.05 HPI/ROS Admit Date/Time Admit Date/Time Oct 24, 2018 at 04:22 Hx of Present Illness This is a 63-year-old female with a history of left eye blindness, alcoholism, hep C, pyelonephritis who initially presented to an outside hospital complaining of abdominal pain, which is diffuse. She was found to have an initial total bilirubin of 4, improved to around 2 on repeat lab. AST in the 200s ALT in the 100. Abdominal ultrasound with a finding of cholecystitis. UA consistent with UTI. Patient was transferred to [facility] for insurance reason. Patient complains of rash on her back, shoulder/elbow among other places. She said this is secondary to scabies. PMH/Family/Social Past Medical History Medications Current Medications Sodium Chloride 1,000 ml @ 100 mls/hr Q10H IV Last administered on 10/24/18at 05:43; Admin Dose 100 MLS/HR; Start 10/24/18 at 05:01; Stop 10/25/18 at 09:00 IV Flush (NS 3 ml) 3 ml PER PROTOCOL IV ; Start 10/24/18 at 05:30 Ondansetron HCl (Zofran Inj) 4 mg Q6H PRN IV NAUSEA AND/OR VOMITING; Start 10/24/18 at 05:30 Acetaminophen (Tylenol Tab) 650 mg Q6H PRN PO PAIN LEVEL 1-3 OR FEVER; Start 10/24/18 at 05:30 Acetaminophen/ Hydrocodone Bitart ([place] (5/325)) 1 tab Q6H PRN PO MODERATE PAIN LEVEL 4-6; Start 10/24/18 at 05:30 Acetaminophen/ Hydrocodone Bitart ([place] (5/325)) 2 tab Q6H PRN PO SEVERE PAIN LEVEL 7-10; Start 10/24/18 at 05:30 Heparin Sodium (Porcine) (Heparin (5000 Units/1ml)) 5,000 unit Q12 SC ; Start 10/24/18 at 09:00 Albuterol/ Ipratropium (Duoneb) 3 ml Q2H RESP THERAPY PRN HHN SHORTNESS OF BREATH; Start 10/24/18 at 05:30 Ciprofloxacin/ Dextrose 200 ml @ 200 mls/hr Q12 IVPB ; Start 10/24/18 at 09:00 Ketorolac Tromethamine (Toradol) 30 mg Q6H PRN IV PAIN LEVEL 1-3; Start 10/24/18 at 05:30; Stop 10/27/18 at 05:29 Morphine Sulfate (morphine) 3 mg Q4H PRN IV SEVERE PAIN LEVEL 7-10 Last administered on 10/24/18at 05:26; Admin Dose 3 MG; Start 10/24/18 at 05:30 Coded Allergies: fentanyl (Verified Allergy, Unknown, 07/15/17) HALLUCINATION risperidone (Verified Allergy, Unknown, 07/15/17) Exam/Review of Systems Vital Signs Vitals Vital Signs Date Temp Pulse Resp B/P (MAP) Pulse Ox O2 O2 Flow FiO2 Time Delivery Rate 10/24/18 Nasal 2.0 05:00 Cannula Exam Exam Constitutional: other (no acute distress) Head: normocephalic Respiratory: other (slight decreased at bases) Cardiovascular: regular rate and rhythm Gastrointestinal: soft Extremities: normal pulses PMH/Family/Social Past Medical History Medical History: other (see hpi) Coded Allergies: No Known Drug Allergy (Verified Allergy, Unknown, 06/06/16) Past Surgical History Past Surgical Hx: other (see hpi) Family History Significant Family History: no pertinent family hx Social History Alcohol Use: other Smoking Status: Unknown if ever smoked Drug Use: other RANDALL HUTTON MD Oct 24, 2018 06:55
[2018-10-24 08:01] VITALS: BP 181/105; PULSE 93; RESP 16
[2018-10-24] MEDS: HYDROCODONE/APAP (5/325) TAB PO PRN (08:43)
[2018-10-24] MEDS ORDERED: FOLIC ACID 1 MG TAB PO SCH (09:00)
[2018-10-24] MEDS ORDERED: HEPARIN 5,000 UNIT/1 ML VIAL SC SCH (09:00)
[2018-10-24] MEDS ORDERED: CIPROFLOXACIN 400MG/D5W 200 ML IVPB SCH (09:00)
[2018-10-24] MEDS ORDERED: MULTIVITAMINS THERAPEUTIC TAB PO SCH (09:00)
[2018-10-24] MEDS: THIAMINE 100 MG TAB PO SCH (09:37)
[2018-10-24 14:24] VITALS: BP 170/99; PULSE 72; RESP 16
--- NOTE | 2018-10-24 17:58 | CONS ---
Date/Time of Note Date/Time of Note DATE: 10/24/18 TIME: 17:31 Assessment/Plan Assessment/Plan Assessment/Plan 1. Abdominal pain with concern for cholecystitis versus hepatitis versus other: Ultrasound without evidence of cholecystitis; HIDA scan negative -Pain management -No surgical intervention necessary at this time -Consider hep panel -Low-fat low-cholesterol diet 2. Hepatitis C history with elevated ALT/AST & hyperbilirubinemia: Elevated indirect bilirubin -GI consult -Trend 3. Concern for scabies: -skin scraping and treatment 4. Hypertension -wt loss -Medical management 5. Obesity BMI: 32 -diet and exercise optimization -encourage weight loss 6. Diverticulosis without diverticulitis from outside imaging -Lifestyle/diet modification Thank you. Patient seen and examined in collaboration with Dr. Carrillo Dailey. Result Diagram: 10/24/18 0545 10/24/18 0545 Results 24hrs Laboratory Tests Test 10/24/18 05:45 White Blood Count 7.8 # Red Blood Count 4.20 Hemoglobin 12.9 Hematocrit 39.2 Mean Corpuscular Volume 93.3 Mean Corpuscular Hemoglobin 30.7 Mean Corpuscular Hemoglobin Concent 32.9 Red Cell Distribution Width 13.3 Platelet Count 170 # Mean Platelet Volume 10.5 H Immature Granulocytes % 1.300 H Neutrophils % 63.8 Lymphocytes % 26.4 Monocytes % 7.4 Eosinophils % 0.6 Basophils % 0.5 Nucleated Red Blood Cells % 0.4 H Immature Granulocytes # 0.100 H Neutrophils # 5.0 Lymphocytes # 2.1 Monocytes # 0.6 Eosinophils # 0.1 Basophils # 0.0 Nucleated Red Blood Cells # 0.0 Sodium Level 140 Potassium Level 4.2 Chloride Level 107 Carbon Dioxide Level 18 L Anion Gap 15 H Blood Urea Nitrogen 23 H Creatinine 1.06 H Est Glomerular Filtrat Rate mL/min 53 L Glucose Level 103 Calcium Level 9.1 Phosphorus Level 4.9 Magnesium Level 1.2 L Total Bilirubin 1.7 H Direct Bilirubin 0.10 Indirect Bilirubin 1.6 H Aspartate Amino Transf (AST/SGOT) 416 H Alanine Aminotransferase (ALT/SGPT) 183 H Alkaline Phosphatase 56 Total Protein 8.2 H Albumin 4.2 Globulin 4.00 H Albumin/Globulin Ratio 1.05 Lipase 78 Consultation Date/Type/Reason Admit Date/Time Oct 24, 2018 at 04:22 Date of Consultation: Oct 24, 2018 Type of Consult Surgical Reason for Consultation Abdominal pain, possible cholecystitis Requesting Provider: JAMES NOLAN MD Hx of Present Illness Imelda Michelle is a 63-year-old woman with past medical history of left eye blindness with prosthetic eye, alcoholism, hypertension, bipolar disorder, depression, chronic back pain, hepatitis C, pyelonephritis who was transferred from outside hospital with primary complaints of abdominal pain x 3 weeks. Abdominal pain is described initially as diffuse, stabbing in character that eventually migrated to the bilateral upper quadrants. Associated symptoms include chills and occasional diarrhea with alternating constipation. No associated fevers, chest pain, shortness of breath, congested cough, nausea, vomiting, dysuria, change in bowel or bladder habits, skin or scleral changes. Imaging from outside hospital showed gallbladder wall thickening with pericholecystic fluid and positive sonographic Alfaro sign. Significant laboratory findings include elevated AST and ALT. General surgery was asked to evaluate. 12 point review of systems is performed and is negative except for stated in HPI. Past Medical History As above Medications Current Medications Sodium Chloride 1,000 ml @ 100 mls/hr Q10H IV Last administered on 10/24/18at 05:43; Admin Dose 100 MLS/HR; Start 10/24/18 at 05:01; Stop 10/25/18 at 09:00 IV Flush (NS 3 ml) 3 ml PER PROTOCOL IV ; Start 10/24/18 at 05:30 Ondansetron HCl (Zofran Inj) 4 mg Q6H PRN IV NAUSEA AND/OR VOMITING; Start 10/24/18 at 05:30 Acetaminophen (Tylenol Tab) 650 mg Q6H PRN PO PAIN LEVEL 1-3 OR FEVER; Start 10/24/18 at 05:30 Acetaminophen/ Hydrocodone Bitart ([place] (5/325)) 1 tab Q6H PRN PO MODERATE PAIN LEVEL 4-6; Start 10/24/18 at 05:30 Acetaminophen/ Hydrocodone Bitart ([place] (5/325)) 2 tab Q6H PRN PO SEVERE PAIN LEVEL 7-10 Last administered on 10/24/18at 08:43; Admin Dose 2 TAB; Start 10/24/18 at 05:30 Heparin Sodium (Porcine) (Heparin (5000 Units/1ml)) 5,000 unit Q12 SC Last administered on 10/24/18at 08:41; Admin Dose 5,000 UNIT; Start 10/24/18 at 09:00 Albuterol/ Ipratropium (Duoneb) 3 ml Q2H RESP THERAPY PRN HHN SHORTNESS OF BREATH; Start 10/24/18 at 05:30 Ciprofloxacin/ Dextrose 200 ml @ 200 mls/hr Q12 IVPB Last administered on 10/24/18at 09:21; Admin Dose 200 MLS/HR; Start 10/24/18 at 09:00 Ketorolac Tromethamine (Toradol) 30 mg Q6H PRN IV PAIN LEVEL 1-3; Start 10/24/18 at 05:30; Stop 10/27/18 at 05:29 Morphine Sulfate (morphine) 3 mg Q4H PRN IV SEVERE PAIN LEVEL 7-10 Last administered on 10/24/18at 15:05; Admin Dose 3 MG; Start 10/24/18 at 05:30 Influenza Virus Vaccine Quadrival (Fluzone) 0.5 ml ONCE ONCE IM* ; Start 10/25/18 at 10:00; Stop 10/25/18 at 10:01 Folic Acid (Folic Acid) 1 mg DAILY PO Last administered on 10/24/18at 09:37; Admin Dose 1 MG; Start 10/24/18 at 09:00 Multivitamins Therapeutic (Theragran) 1 tab DAILY PO Last administered on at 09:37; Admin Dose 1 TAB; Start 10/24/18 at 09:00 Thiamine HCl (Vitamin B1) 100 mg DAILY PO Last administered on 10/24/18at 09:37; Admin Dose 100 MG; Start 10/24/18 at 09:00 Allergies: Coded Allergies: fentanyl (Verified Allergy, Unknown, 07/15/17) HALLUCINATION risperidone (Verified Allergy, Unknown, 07/15/17) Past Surgical History Left eye surgery with prosthesis Family History Significant Family History: no pertinent family hx Social History Smoking Status: Current every day smoker Exam/Review of Systems Vital Signs Vitals Vital Signs Date Temp Pulse Resp B/P (MAP) Pulse Ox O2 O2 Flow FiO2 Time Delivery Rate 10/24/18 98.0 72 16 170/99 92 14:24 (122) 10/24/18 Nasal 2.0 08:00 Cannula Exam Constitutional: alert, oriented Psych: no complaints, nl mood/affect; No anxiety Head: normocephalic, atraumatic Eyes: nl conjunctiva, nl sclera (Right eye), other (Left eye enucleation); No icteric ENMT: nl external ears & nose, nl lips & teeth, nl nasal mucosa & septum, mucosa pink and moist Neck: supple, non-tender; No jvd Respiratory: normal air movement; No congested cough, No labored breathing Cardiovascular: regular rate and rhythm, nl pulses Gastrointestinal: soft, tender (Bilateral upper quadrant); No distended Genitourinary - Female: nl external genitalia Musculoskeletal: nl extremities to inspection; No swelling Extremities: normal pulses Neurological: nl mental status, nl speech, nl strength Skin: other (Back and bilateral arm small lesions) Medications Medications Current Medications Sodium Chloride 1,000 ml @ 100 mls/hr Q10H IV Last administered on 10/24/18at 05:43; Admin Dose 100 MLS/HR; Start 10/24/18 at 05:01; Stop 10/25/18 at 09:00 IV Flush (NS 3 ml) 3 ml PER PROTOCOL IV ; Start 10/24/18 at 05:30 Ondansetron HCl (Zofran Inj) 4 mg Q6H PRN IV NAUSEA AND/OR VOMITING; Start 10/24/18 at 05:30 Acetaminophen (Tylenol Tab) 650 mg Q6H PRN PO PAIN LEVEL 1-3 OR FEVER; Start 10/24/18 at 05:30 Acetaminophen/ Hydrocodone Bitart ([place] (5/325)) 1 tab Q6H PRN PO MODERATE PAIN LEVEL 4-6; Start 10/24/18 at 05:30 Acetaminophen/ Hydrocodone Bitart ([place] (5/325)) 2 tab Q6H PRN PO SEVERE PAIN LEVEL 7-10 Last administered on 10/24/18at 08:43; Admin Dose 2 TAB; Start 10/24/18 at 05:30 Heparin Sodium (Porcine) (Heparin (5000 Units/1ml)) 5,000 unit Q12 SC Last administered on 10/24/18at 08:41; Admin Dose 5,000 UNIT; Start 10/24/18 at 09:00 Albuterol/ Ipratropium (Duoneb) 3 ml Q2H RESP THERAPY PRN HHN SHORTNESS OF BREATH; Start 10/24/18 at 05:30 Ciprofloxacin/ Dextrose 200 ml @ 200 mls/hr Q12 IVPB Last administered on 10/24/18 09:21; Admin Dose 200 MLS/HR; Start 10/24/18 at 09:00 Ketorolac Tromethamine (Toradol) 30 mg Q6H PRN IV PAIN LEVEL 1-3; Start 10/24/18 at 05:30; Stop 10/27/18 at 05:29 Morphine Sulfate (morphine) 3 mg Q4H PRN IV SEVERE PAIN LEVEL 7-10 Last administered on 10/24/18at 15:05; Admin Dose 3 MG; Start 10/24/18 at 05:30 Influenza Virus Vaccine Quadrival (Fluzone) 0.5 ml ONCE ONCE IM* ; Start 10/25/18 at 10:00; Stop 10/25/18 at 10:01 Folic Acid (Folic Acid) 1 mg DAILY PO Last administered on 10/24/18 09:37; Admin Dose 1 MG; Start 10/24/18 at 09:00 Multivitamins Therapeutic (Theragran) 1 tab DAILY PO Last administered on 10/24/18 09:37; Admin Dose 1 TAB; Start 10/24/18 at 09:00 Thiamine HCl (Vitamin B1) 100 mg DAILY PO Last administered on 10/24/18 09:37; Admin Dose 100 MG; Start 10/24/18 at 09:00 ALISSA ERAZO NP Oct 24, 2018 17:41
--- NOTE | 2018-10-24 18:22 | PN ---
Date/Time of Note Date/Time of Note DATE: 10/24/18 TIME: 18:19 Assessment/Plan VTE Prophylaxis Risk score (from Ns)>0 risk: 3 SCD applied (from [facility] [place]): Yes SCD contraindicated: low risk/ambulating Pharmacological prophylaxis: NA/contraindicated Pharm contraindication: low risk/ambulating Lines/Catheters IV C[facility]ter Type (from [email or web address] Peripheral IV Assessment/Plan Hospital Course Assessment and plan 1. Abdominal pain, likely gastritis rule out pancreatitis, stable observe check H. pylori 2. Chronic alcoholism 3. Chronic major depression? 4. Chronic alcohol related cirrhosis 5. Chronic alcohol related liver disease 6. Chronic homelessness 7. Chronic viral hepatitis? 8. Chronic left eye blindness 9. GI bleed/hematochezia? 10. UTI? 11. Scabies? Continue empiric treatment S: Abd pain dull achy epigastric to diffuse. No known aggravating factors. Has been drinking a lot of vodka lately. One episode of nausea vomiting without any hematemesis. She is homeless. Occasionally has hemorrhoids and hematochezia. No hematuria dysuria at present. No fever. No cough dyspnea. Itching mostly on her neck and shoulder. Reactive: Vital signs stable blood pressure elevated PE No pallor icterus JVD adenopathy Regular Clear Benign No edema Result Diagram: 10/24/18 0545 10/24/18 0545 Results 24hrs Laboratory Tests Test 10/24/18 05:45 White Blood Count 7.8 # Red Blood Count 4.20 Hemoglobin 12.9 Hematocrit 39.2 Mean Corpuscular Volume 93.3 Mean Corpuscular Hemoglobin 30.7 Mean Corpuscular Hemoglobin Concent 32.9 Red Cell Distribution Width 13.3 Platelet Count 170 # Mean Platelet Volume 10.5 H Immature Granulocytes % 1.300 H Neutrophils % 63.8 Lymphocytes % 26.4 Monocytes % 7.4 Eosinophils % 0.6 Basophils % 0.5 Nucleated Red Blood Cells % 0.4 H Immature Granulocytes # 0.100 H Neutrophils # 5.0 Lymphocytes # 2.1 Monocytes # 0.6 Eosinophils # 0.1 Basophils # 0.0 Nucleated Red Blood Cells # 0.0 Sodium Level 140 Potassium Level 4.2 Chloride Level 107 Carbon Dioxide Level 18 L Anion Gap 15 H Blood Urea Nitrogen 23 H Creatinine 1.06 H Est Glomerular Filtrat Rate mL/min 53 L Glucose Level 103 Calcium Level 9.1 Phosphorus Level 4.9 Magnesium Level 1.2 L Total Bilirubin 1.7 H Direct Bilirubin 0.10 Indirect Bilirubin 1.6 H Aspartate Amino Transf (AST/SGOT) 416 H Alanine Aminotransferase (ALT/SGPT) 183 H Alkaline Phosphatase 56 Total Protein 8.2 H Albumin 4.2 Globulin 4.00 H Albumin/Globulin Ratio 1.05 Lipase 78 Exam/Review of Systems Vital Signs Vitals Vital Signs Date Temp Pulse Resp B/P (MAP) Pulse Ox O2 O2 Flow FiO2 Time Delivery Rate 10/24/18 98.0 72 16 170/99 92 14:24 (122) 10/24/18 Nasal 2.0 08:00 Cannula Medications Medications Current Medications Sodium Chloride 1,000 ml @ 100 mls/hr Q10H IV Last administered on 10/24/18at 05:43; Admin Dose 100 MLS/HR; Start 10/24/18 at 05:01; Stop 10/25/18 at 09:00 IV Flush (NS 3 ml) 3 ml PER PROTOCOL IV ; Start 10/24/18 at 05:30 Ondansetron HCl (Zofran Inj) 4 mg Q6H PRN IV NAUSEA AND/OR VOMITING; Start 10/24/18 at 05:30 Acetaminophen (Tylenol Tab) 650 mg Q6H PRN PO PAIN LEVEL 1-3 OR FEVER; Start 10/24/18 at 05:30 Acetaminophen/ Hydrocodone Bitart ([place] (5/325)) 1 tab Q6H PRN PO MODERATE PAIN LEVEL 4-6; Start 10/24/18 at 05:30 Acetaminophen/ Hydrocodone Bitart ([place] (5/325)) 2 tab Q6H PRN PO SEVERE PAIN LEVEL 7-10 Last administered on 10/24/18at 08:43; Admin Dose 2 TAB; Start 10/24/18 at 05:30 Heparin Sodium (Porcine) (Heparin (5000 Units/1ml)) 5,000 unit Q12 SC Last administered on 10/24/18at 08:41; Admin Dose 5,000 UNIT; Start 10/24/18 at 09:00 Albuterol/ Ipratropium (Duoneb) 3 ml Q2H RESP THERAPY PRN HHN SHORTNESS OF BREATH; Start 10/24/18 at 05:30 Ciprofloxacin/ Dextrose 200 ml @ 200 mls/hr Q12 IVPB Last administered on 10/24/18at 09:21; Admin Dose 200 MLS/HR; Start 10/24/18 at 09:00 Ketorolac Tromethamine (Toradol) 30 mg Q6H PRN IV PAIN LEVEL 1-3; Start 10/24/18 at 05:30; Stop 10/27/18 at 05:29 Morphine Sulfate (morphine) 3 mg Q4H PRN IV SEVERE PAIN LEVEL 7-10 Last administered on 10/24/18at 15:05; Admin Dose 3 MG; Start 10/24/18 at 05:30 Influenza Virus Vaccine Quadrival (Fluzone) 0.5 ml ONCE ONCE IM* ; Start 10/25/18 at 10:00; Stop 10/25/18 at 10:01 Folic Acid (Folic Acid) 1 mg DAILY PO Last administered on 10/24/18at 09:37; Admin Dose 1 MG; Start 10/24/18 at 09:00 Multivitamins Therapeutic (Theragran) 1 tab DAILY PO Last administered on 10/24/18at 09:37; Admin Dose 1 TAB; Start 10/24/18 at 09:00 Thiamine HCl (Vitamin B1) 100 mg DAILY PO Last administered on 10/24/18at 09:37; Admin Dose 100 MG; Start 10/24/18 at 09:00 Permethrin (Elimite 5% Cr) 1 applic ONCE ONCE TOP ; Start 10/24/18 at 18:30; Stop 10/24/18 at 18:31; Status JAMES DEGROOT MD Oct 24, 2018 18:22
[2018-10-24] MEDS: METOPROLOL (XL) 50 MG TAB PO SCH (18:50)
[2018-10-24 20:00] VITALS: BP 157/98; PULSE 88; RESP 18
[2018-10-24] MEDS ORDERED: MAGNESIUM SULFATE 3 GM in DEXTROSE 5% 100 ML IVPB ONE (20:00)
[2018-10-24] MEDS: LIDOCAINE/MYLANTA 40 ML BTL PO SCH (20:24)
[2018-10-24] MEDS ORDERED: PERMETHRIN 5% 60 GM CR TOP SCH (21:00)
[2018-10-25] MEDS: SOD CHLORIDE 0.9% 1,000 ML IV SCH (01:44)
[2018-10-25] MEDS: morphine 4 MG/ML VIAL IV PRN ×3 (01:46→20:30)
[2018-10-25 02:10] VITALS: BP 147/95; PULSE 88; RESP 18
[2018-10-25] MEDS: THIAMINE 100 MG TAB PO SCH (08:33)
[2018-10-25] MEDS: LIDOCAINE/MYLANTA 40 ML BTL PO SCH ×3 (08:33→20:38)
[2018-10-25] MEDS: METOPROLOL (XL) 50 MG TAB PO SCH (08:34)
[2018-10-25] MEDS: ENOXAPARIN 40 MG/0.4 ML SYG SC SCH (08:36)
[2018-10-25 08:47] VITALS: BP 140/85; PULSE 83; RESP 18
[2018-10-25] MEDS ORDERED: PERMETHRIN 5% 60 GM CR TOP ONE (09:00)
[2018-10-25] MEDS: PANTOPRAZOLE (EC) 40 MG TAB PO SCH ×2 (09:16→17:15)
[2018-10-25] MEDS ORDERED: INFLUENZA VIRUS VACCINE 0.5 ML (DISPENSING) IM* ONE (10:00)
--- NOTE | 2018-10-25 12:30 | PN ---
Date/Time of Note Date/Time of Note DATE: 10/25/18 TIME: 12:27 Assessment/Plan VTE Prophylaxis Risk score (from Nsg)>0 risk: 4 SCD applied (from Ns): Yes SCD contraindicated: low risk/ambulating Pharmacological prophylaxis: NA/contraindicated Pharm contraindication: low risk/ambulating Lines/Catheters IV Catheter Type (from Nrs): [place] Assessment/Plan Hospital Course Assessment and plan 1. Abd pain, likely gastritis, ro pancreatitis, stable observe; check H pylori 2. Chronic alcoholism 3. Chronic major depression? 4. Chronic alcohol related cirrhosis 5. Chronic alcohol related liver disease 6. Chronic homelessness 7. Chronic viral hepatitis 8. Chronic left eye blindness 9. GI bleed/hematochezia? Stable, consider outpatient referral/ EGD. 10. UTI? 11. Scabies? Continue empiric treatment 12. Nasal congestion 13. Failure to thrive, probably stable for discharge if tolerating diet S: 10/24 abd pain dull achy epigastric to diffuse. No known aggravating factors. Has been drinking a lot of vodka lately. One episode of nausea vomiting without any hematemesis. She is homeless. Occasionally has hemorrhoids and hematochezia. No hematuria dysuria at present. No fever. No cough dyspnea. Itching mostly on her neck and shoulder. 10/25: No nausea vomiting fever dyspnea. Has nasal congestion. Has had applied Elimite twice. Room changed. Scalp feels better post shower. Apparently needed morphine prior to showering O: Vss PE No pallor icterus jvd Regular no mrg Clear Benign No edema Some areas of excoriation over rt shoulder and back Result Diagram: 10/25/18 0458 10/25/18 0458 Results 24hrs Laboratory Tests Test 10/24/18 18:20 10/24/18 23:50 10/25/18 04:58 Urine Color DOREEN Urine Clarity SLIGHTLY CLOUDY A Urine pH 5.0 Urine Specific [place] 1.054 H Urine Ketones TRACE A Urine Nitrite NEGATIVE Urine Bilirubin NEGATIVE Urine Urobilinogen 2+ H Urine Leukocyte Esterase NEGATIVE Urine Microscopic RBC 5 Urine Microscopic WBC 14 H Urine Squamous Epithelial Cells MODERATE Urine Bacteria FEW A Urine Mucus FEW A Urine Hemoglobin NEGATIVE Urine Glucose NEGATIVE Urine Total Protein 2+ H Urine Opiates Screen Positive Urine Barbiturates Negative Urine Amphetamines Screen Negative Urine Benzodiazepines Screen Negative Urine Cocaine Screen Negative Urine Cannabinoids Negative White Blood Count 5.1 # Red Blood Count 3.92 L Hemoglobin 12.3 Hematocrit 37.0 Mean Corpuscular Volume 94.4 Mean Corpuscular Hemoglobin 31.4 Mean Corpuscular 33.2 Hemoglobin Concent Red Cell Distribution Width 13.5 Platelet Count 147 Mean Platelet Volume 9.9 Immature Granulocytes % 0.200 Neutrophils % 59.4 Lymphocytes % 29.1 Monocytes % 7.9 Eosinophils % 3.0 Basophils % 0.4 Nucleated Red Blood Cells % 0.0 Immature Granulocytes # 0.010 Neutrophils # 3.0 Lymphocytes # 1.5 Monocytes # 0.4 Eosinophils # 0.2 Basophils # 0.0 Nucleated Red Blood Cells # 0.0 Prothrombin Time 18.6 H Prothrombin Time Ratio 1.5 INR International 1.54 Normalized Ratio Sodium Level 137 Potassium Level 3.8 Chloride Level 106 Carbon Dioxide Level 21 Anion Gap 10 # Blood Urea Nitrogen 24 H Creatinine 1.03 H Est Glomerular Filtrat 54 L Rate mL/min Glucose Level 156 Calcium Level 8.8 Phosphorus Level 4.0 Magnesium Level 2.1 Total Bilirubin 0.6 Direct Bilirubin 0.00 Indirect Bilirubin 0.6 Aspartate Amino 479 H Transf (AST/SGOT) Alanine 224 H Aminotransferase (ALT/SGPT) Alkaline Phosphatase 51 Total Protein 7.7 Albumin 4.0 Globulin 3.70 H Albumin/Globulin Ratio 1.08 Lipase 140 Hepatitis B Surface Antigen NEGATIVE Hepatitis B Core Total Antibody REACTIVE H Hepatitis C Antibody REACTIVE H HIV (1&2) Antibody NEGATIVE Exam/Review of Systems Vital Signs Vitals Vital Signs Date Temp Pulse Resp B/P (MAP) Pulse Ox O2 O2 Flow FiO2 Time Delivery Rate 10/25/18 97.8 83 18 140/85 93 08:47 (103) 10/24/18 Nasal 2.0 08:00 Cannula Intake and Output 10/24/18 10/24/18 10/25/18 1515:00 23:00 07:00 IntakeIntake Total 800 ml 1976 ml BalanceBalance 800 ml 1976 ml Medications Medications Current Medications IV Flush (NS 3 ml) 3 ml PER PROTOCOL IV ; Start 10/24/18 at 05:30 Ondansetron HCl (Zofran Inj) 4 mg Q6H PRN IV NAUSEA AND/OR VOMITING; Start 10/24/18 at 05:30 Acetaminophen (Tylenol Tab) 650 mg Q6H PRN PO PAIN LEVEL 1-3 OR FEVER; Start 10/24/18 at 05:30 Acetaminophen/ Hydrocodone Bitart ([place] (5/325)) 1 tab Q6H PRN PO MODERATE PAIN LEVEL 4-6; Start 10/24/18 at 05:30 Acetaminophen/ Hydrocodone Bitart ([place] (5/325)) 2 tab Q6H PRN PO SEVERE PAIN LEVEL 7-10 Last administered on 10/24/18at 08:43; Admin Dose 2 TAB; Start 10/24/18 at 05:30 Albuterol/ Ipratropium (Duoneb) 3 ml Q2H RESP THERAPY PRN HHN SHORTNESS OF BREATH; Start 10/24/18 at 05:30 Ketorolac Tromethamine (Toradol) 30 mg Q6H PRN IV PAIN LEVEL 1-3; Start 10/24/18 at 05:30; Stop 10/27/18 at 05:29 Morphine Sulfate (morphine) 3 mg Q4H PRN IV SEVERE PAIN LEVEL 7-10 Last administered on 10/25/18at 08:37; Admin Dose 3 MG; Start 10/24/18 at 05:30 Thiamine HCl (Vitamin B1) 100 mg DAILY PO Last administered on 10/25/18at 08:33; Admin Dose 100 MG; Start 10/24/18 at 09:00 Folic Acid (Folic Acid) 1 mg DAILY PO ; Start 10/28/18 at 09:00 Multivitamins Therapeutic (Theragran) 1 tab DAILY PO ; Start 11/01/18 at 09:00 Enoxaparin Sodium (Lovenox) 40 mg DAILY SC Last administered on 10/25/18at 08:36; Admin Dose 40 MG; Start 10/25/18 at 09:00 Metoprolol Succinate (Toprol Xl) 50 mg DAILY PO Last administered on 10/25/18at 08:34; Admin Dose 50 MG; Start 10/24/18 at 18:30 Clonidine (Catapres) 0.1 mg Q4H PRN PO SBP GREATER THAN 160; Start 10/24/18 at 18:30 Pantoprazole (Protonix Tab) 40 mg BID@,18 PO Last administered on 10/25/18at 09:16; Admin Dose 40 MG; Start 10/25/18 at 09:00 Miscellaneous Medication (Gi Cocktail (2)) 40 ml TID PO Last administered on 10/25/18at 08:33; Admin Dose 40 ML; Start 10/24/18 at 21:00; Stop 10/26/18 at 09:00 JAMES NOLAN MD Oct 25, 2018 12:30
[2018-10-25] MEDS: HYDROCODONE/APAP (5/325) TAB PO PRN (14:43)
[2018-10-25 15:21] VITALS: BP 141/83; PULSE 78; RESP 18
--- NOTE | 2018-10-25 16:01 | CONS ---
Date/Time of Note Date/Time of Note DATE: 10/25/18 TIME: 15:40 Assessment/Plan Assessment/Plan Hospital Course Summary Assessment and Plan: Assessment: Abdominal pain- improved - Gallbladder ultrasound negative for cholelithiasis, cholecystitis , or biliary obstruction. - Hida scan-normal Hepatitis C - untreated Elevated liver enzymes Indirect hyperbilirubinemia- treatment Empiric treatment for scabies Hypertension Diverticulosis ETOH abuse- 1/2 pint per day x3 years Current smoker- 1/2 per day x40 years History of rectal bleeding currently no overt signs of GI bleed with stable hemoglobin Plan: F/u with GI for out-pt endoscopies and Hep C treatment Monitor labs Continue PPI Diet as tolerated Patient seen in collaboration with Dr. Moe Result Diagram: 10/25/18 0458 10/25/188 Results 24hrs Laboratory Tests Test 10/24/18 18:20 10/24/18 23:50 10/25/18 04:58 Urine Color DOREEN Urine Clarity SLIGHTLY CLOUDY A Urine pH 5.0 Urine Specific [place] 1.054 H Urine Ketones TRACE A Urine Nitrite NEGATIVE Urine Bilirubin NEGATIVE Urine Urobilinogen 2+ H Urine Leukocyte Esterase NEGATIVE Urine Microscopic RBC 5 Urine Microscopic WBC 14 H Urine Squamous Epithelial Cells MODERATE Urine Bacteria FEW A Urine Mucus FEW A Urine Hemoglobin NEGATIVE Urine Glucose NEGATIVE Urine Total Protein 2+ H Urine Opiates Screen Positive Urine Barbiturates Negative Urine Amphetamines Screen Negative Urine Benzodiazepines Screen Negative Urine Cocaine Screen Negative Urine Cannabinoids Negative White Blood Count 5.1 # Red Blood Count 3.92 L Hemoglobin 12.3 Hematocrit 37.0 Mean Corpuscular Volume 94.4 Mean Corpuscular Hemoglobin 31.4 Mean Corpuscular 33.2 Hemoglobin Concent Red Cell Distribution Width 13.5 Platelet Count 147 Mean Platelet Volume 9.9 Immature Granulocytes % 0.200 Neutrophils % 59.4 Lymphocytes % 29.1 Monocytes % 7.9 Eosinophils % 3.0 Basophils % 0.4 Nucleated Red Blood Cells % 0.0 Immature Granulocytes # 0.010 Neutrophils # 3.0 Lymphocytes # 1.5 Monocytes # 0.4 Eosinophils # 0.2 Basophils # 0.0 Nucleated Red Blood Cells # 0.0 Prothrombin Time 18.6 H Prothrombin Time Ratio 1.5 INR International 1.54 Normalized Ratio Sodium Level 137 Potassium Level 3.8 Chloride Level 106 Carbon Dioxide Level 21 Anion Gap 10 # Blood Urea Nitrogen 24 H Creatinine 1.03 H Est Glomerular Filtrat 54 L Rate mL/min Glucose Level 156 Calcium Level 8.8 Phosphorus Level 4.0 Magnesium Level 2.1 Total Bilirubin 0.6 Direct Bilirubin 0.00 Indirect Bilirubin 0.6 Aspartate Amino 479 H Transf (AST/SGOT) Alanine 224 H Aminotransferase (ALT/SGPT) Alkaline Phosphatase 51 Total Protein 7.7 Albumin 4.0 Globulin 3.70 H Albumin/Globulin Ratio 1.08 Lipase 140 Hepatitis B Surface Antigen NEGATIVE Hepatitis B Core Total Antibody REACTIVE H Hepatitis C Antibody REACTIVE H HIV (1&2) Antibody NEGATIVE CC: AYLEEN MOE ; Consultation Date/Type/Reason Admit Date/Time Oct 24, 2018 at 04:22 Date of Consultation: Oct 25, 2018 Type of Consult GI Reason for Consultation Hepatitis C Elevated liver enzymes Hx of Present Illness This is a 63-year-old female with history of blindness, alcoholism, hepatitis C, current smoker who presented to an outside hospital with complaints of abdominal pain and there suggested cholecystitis and UTI patient transferred to [facility] and for insurance reasons here imaging was obtain a gallbladder ultrasound is negative for cholelithiasis, cholecystitis, or biliary obstruction, HIDA scan was also completed also negative LFTs are elevated in the setting of known hepatitis C untreated and alcoholism. Time evaluation patient denies melena, hematochezia, nausea or vomiting. She complains of mild epigastric pain with palpation. Noted scabs to body she is currently empirically being treated for scabies. Discussed plan with patient to follow-up as an outpatient for hepatitis C treatment and endoscopic evaluation. Past Medical History Medications Current Medications IV Flush (NS 3 ml) 3 ml PER PROTOCOL IV ; Start 10/24/18 at 05:30 Ondansetron HCl (Zofran Inj) 4 mg Q6H PRN IV NAUSEA AND/OR VOMITING; Start 10/24/18 at 05:30 Acetaminophen (Tylenol Tab) 650 mg Q6H PRN PO PAIN LEVEL 1-3 OR FEVER; Start 10/24/18 at 05:30 Acetaminophen/ Hydrocodone Bitart ([place] (5/325)) 1 tab Q6H PRN PO MODERATE PAIN LEVEL 4-6; Start 10/24/18 at 05:30 Acetaminophen/ Hydrocodone Bitart ([place] (5/325)) 2 tab Q6H PRN PO SEVERE PAIN LEVEL 7-10 Last administered on 10/25/18at 14:43; Admin Dose 2 TAB; Start 10/24/18 at 05:30 Albuterol/ Ipratropium (Duoneb) 3 ml Q2H RESP THERAPY PRN HHN SHORTNESS OF BR EATH; Start 10/24/18 at 05:30 Ketorolac Tromethamine (Toradol) 30 mg Q6H PRN IV PAIN LEVEL 1-3; Start 10/24/18 at 05:30; Stop 10/27/18 at 05:29 Morphine Sulfate (morphine) 3 mg Q4H PRN IV SEVERE PAIN LEVEL 7-10 Last administered on 10/25/18at 08:37; Admin Dose 3 MG; Start 10/24/18 at 05:30 Thiamine HCl (Vitamin B1) 100 mg DAILY PO Last administered on 10/25/18at 08:33; Admin Dose 100 MG; Start 10/24/18 at 09:00 Folic Acid (Folic Acid) 1 mg DAILY PO ; Start 10/28/18 at 09:00 Multivitamins Therapeutic (Theragran) 1 tab DAILY PO ; Start 11/01/18 at 09:00 Enoxaparin Sodium (Lovenox) 40 mg DAILY SC Last administered on 10/25/18at 08:36; Admin Dose 40 MG; Start 10/25/18 at 09:00 Metoprolol Succinate (Toprol Xl) 50 mg DAILY PO Last administered on 10/25/18at 08:34; Admin Dose 50 MG; Start 10/24/18 at 18:30 Clonidine (Catapres) 0.1 mg Q4H PRN PO SBP GREATER THAN 160; Start 10/24/18 at 18:30 Pantoprazole (Protonix Tab) 40 mg BID@06,18 PO Last administered on 10/25/18at 09:16; Admin Dose 40 MG; Start 10/25/18 at 09:00 Miscellaneous Medication (Gi Cocktail (2)) 40 ml TID PO Last administered on 10/25/18at 08:33; Admin Dose 40 ML; Start 10/24/18 at 21:00; Stop 10/26/18 at 09:00 Oxymetazoline HCl (Afrin [place]) 2 spray BID NASAL ; Start 10/25/18 at 12:30 Miscellaneous Information (* Miscellaneous Pharmacy Order) selenium sulfide topic... ONCE XX ; Start 10/25/18 at 12:30; Status UNV Allergies: Coded Allergies: fentanyl (Verified Allergy, Unknown, 07/15/17) HALLUCINATION risperidone (Verified Allergy, Unknown, 07/15/17) Social History Smoking Status: Current every day smoker Exam/Review of Systems Vital Signs Vitals Vital Signs Date Temp Pulse Resp B/P (MAP) Pulse Ox O2 O2 Flow FiO2 Time Delivery Rate 10/25/18 97.7 78 18 141/83 85 15:21 (102) 10/24/18 Nasal 2.0 08:00 Cannula Intake and Output 10/24/18 10/24/18 10/25/18 1414:59 22:59 06:59 IntakeIntake Total 800 ml 1976 ml BalanceBalance 800 ml 1976 ml Exam PHYSICAL EXAMINATION: GENERAL: Well developed, well nourished, alert & oriented x 3, in no acute distress SKIN: Scabs currently being empirically treated for scabies EYES: Legally blind EARS/NOSE AND THROAT: Ears normal, nose normal, oropharynx normal NECK: Supple, no masses CHEST: Inspection within normal limits. CARDIOVASCULAR: Heart: Regular rate and rhythm RESPIRATORY: Lungs clear to auscultation and percussion, no wheezing, no rubs GASTROINTESTINAL AND LIVER: Abdomen: Soft, mild abdominal tenderness, non- distended, no hernias, no masses, no organomegaly, no ascites, no guarding, no rebound tenderness, normoactive bowel sounds. Rectal: Deferred. GENITOURINARY: not examined Medications Medications Current Medications IV Flush (NS 3 ml) 3 ml PER PROTOCOL IV ; Start 10/24/18 at 05:30 Ondansetron HCl (Zofran Inj) 4 mg Q6H PRN IV NAUSEA AND/OR VOMITING; Start 10/24/18 at 05:30 Acetaminophen (Tylenol Tab) 650 mg Q6H PRN PO PAIN LEVEL 1-3 OR FEVER; Start 10/24/18 at 05:30 Acetaminophen/ Hydrocodone Bitart ([place] (5/325)) 1 tab Q6H PRN PO MODERATE PAIN LEVEL 4-6; Start 10/24/18 at 05:30 Acetaminophen/ Hydrocodone Bitart ([place] (5/325)) 2 tab Q6H PRN PO SEVERE PAIN LEVEL 7-10 Last administered on 10/25/18at 14:43; Admin Dose 2 TAB; Start 10/24/18 at 05:30 Albuterol/ Ipratropium (Duoneb) 3 ml Q2H RESP THERAPY PRN HHN SHORTNESS OF BREATH; Start 10/24/18 at 05:30 Ketorolac Tromethamine (Toradol) 30 mg Q6H PRN IV PAIN LEVEL 1-3; Start 10/24/18 at 05:30; Stop 10/27/18 at 05:29 Morphine Sulfate (morphine) 3 mg Q4H PRN IV SEVERE PAIN LEVEL 7-10 Last administered on 10/25/18at 08:37; Admin Dose 3 MG; Start 10/24/18 at 05:30 Thiamine HCl (Vitamin B1) 100 mg DAILY PO Last administered on 10/25/18at 08:33; Admin Dose 100 MG; Start 10/24/18 at 09:00 Folic Acid (Folic Acid) 1 mg DAILY PO ; Start 10/28/18 at 09:00 Multivitamins Therapeutic (Theragran) 1 tab DAILY PO ; Start 11/01/18 at 09:00 Enoxaparin Sodium (Lovenox) 40 mg DAILY SC Last administered on 10/25/18at 08:36; Admin Dose 40 MG; Start 10/25/18 at 09:00 Metoprolol Succinate (Toprol Xl) 50 mg DAILY PO Last administered on 10/25/18at 08:34; Admin Dose 50 MG; Start 10/24/18 at 18:30 Clonidine (Catapres) 0.1 mg Q4H PRN PO SBP GREATER THAN 160; Start 10/24/18 at 18:30 Pantoprazole (Protonix Tab) 40 mg BID@06,18 PO Last administered on 10/25/18at 09:16; Admin Dose 40 MG; Start 10/25/18 at 09:00 Miscellaneous Medication (Gi Cocktail (2)) 40 ml TID PO Last administered on 10/25/18at 08:33; Admin Dose 40 ML; Start 10/24/18 at 21:00; Stop 10/26/18 at 09:00 Oxymetazoline HCl (Afrin [place]) 2 spray BID NASAL ; Start 10/25/18 at 12:30 Miscellaneous Information (* Miscellaneous Pharmacy Order) selenium sulfide topic... ONCE XX ; Start 10/25/18 at 12:30; Status VICTORINO LEE Oct 25, 2018 15:53
[2018-10-25] MEDS: OXYMETAZOLINE 0.05% 15 ML NAS SPRAY NASAL SCH ×2 (17:14→20:30)
[2018-10-25 20:00] VITALS: BP 148/95; PULSE 74; RESP 18
[2018-10-25 20:40] VITALS: BP 142/85; RESP 18
--- NOTE | 2018-10-25 23:27 | PN ---
Date/Time of Note Date/Time of Note DATE: 10/25/18 TIME: 23:22 Assessment/Plan Lines/Catheters IV Catheter Type (from Nrs): Saline Lock Assessment/Plan Assessment/Plan 1. Abdominal pain with concern for cholecystitis versus hepatitis versus other: Ultrasound without evidence of cholecystitis; HIDA scan negative -Pain management -No surgical intervention necessary at this time -Low-fat low-cholesterol diet 2. Hepatitis C history with elevated ALT/AST & hyperbilirubinemia: Elevated indirect bilirubin -GI consult noted> follow-up outpatient GI -Trend 3. Concern for scabies: -skin scraping and treatment 4. Hypertension -wt loss -Medical management 5. Obesity BMI: 32 -diet and exercise optimization -encourage weight loss 6. Diverticulosis without diverticulitis from outside imaging -Lifestyle/diet modification Thank you. Patient seen and examined in collaboration with Dr. Carrillo Dailey. Subjective 24 Hr Interval Summary Some bloating. Tolerated diet. No acute abdominal pain. No fevers, chills, sob, congested cough, cp, palpitations, dumont, dizziness, nausea, vomiting, diarrhea, dysuria. Intermittent bouts of anxiety and screaming. Exam/Review of Systems Vital Signs Vitals Vital Signs Date Temp Pulse Resp B/P (MAP) Pulse Ox O2 O2 Flow FiO2 Time Delivery Rate 10/25/18 18 142/85 92 20:40 (104) 10/25/18 Nasal 2.0 20:00 Cannula 10/25/18 98.2 74 20:00 Intake and Output 10/24/18 10/24/18 10/25/18 1515:00 23:00 07:00 IntakeIntake Total 800 ml 1976 ml BalanceBalance 800 ml 1976 ml Exam Free Text/Dictation Constitutional: alert, oriented Psych: no complaints, nl mood/affect; No anxiety Head: normocephalic, atraumatic Eyes: nl conjunctiva, nl sclera (Right eye), other (Left eye enucleation); No icteric ENMT: nl external ears & nose, nl lips & teeth, nl nasal mucosa & septum, mucosa pink and moist Neck: supple, non-tender; No jvd Respiratory: normal air movement; No congested cough, No labored breathing Cardiovascular: regular rate and rhythm, nl pulses Gastrointestinal: soft, tender (Bilateral upper quadrant); No distended Genitourinary - Female: nl external genitalia Musculoskeletal: nl extremities to inspection; No swelling Extremities: normal pulses Neurological: nl mental status, nl speech, nl strength Skin: other (Back and bilateral arm small lesions) Results Result Diagram: 10/25/18 0458 10/25/18 0458 ALISSA ERAZO NP Oct 25, 2018 23:27
[2018-10-26] MEDS: morphine 4 MG/ML VIAL IV PRN ×3 (01:39→13:04)
[2018-10-26 02:15] VITALS: BP 140/82; PULSE 81; RESP 18
[2018-10-26] MEDS: PANTOPRAZOLE (EC) 40 MG TAB PO SCH ×2 (05:45→17:46)
[2018-10-26 08:01] VITALS: BP 144/90; PULSE 70; RESP 19
[2018-10-26] MEDS: LIDOCAINE/MYLANTA 40 ML BTL PO SCH (09:00)
[2018-10-26] MEDS: OXYMETAZOLINE 0.05% 15 ML NAS SPRAY NASAL SCH ×2 (09:42→20:37)
[2018-10-26] MEDS: METOPROLOL (XL) 50 MG TAB PO SCH (09:43)
[2018-10-26] MEDS: THIAMINE 100 MG TAB PO SCH (09:43)
[2018-10-26] MEDS: HYDROCODONE/APAP (5/325) TAB PO PRN ×2 (09:43→20:36)
[2018-10-26] MEDS: ENOXAPARIN 40 MG/0.4 ML SYG SC SCH (09:44)
--- NOTE | 2018-10-26 11:04 | PN ---
Date/Time of Note Date/Time of Note DATE: 10/26/18 TIME: 11:03 Assessment/Plan VTE Prophylaxis Risk score (from Ns)>0 risk: 3 SCD applied (from Ns): Yes Pharmacological prophylaxis: other (scds) Lines/Catheters IV [facility]from [facility] Saline Lock Assessment/Plan Hospital Course Summary Assessment and Plan: Assessment: Abdominal pain- improved - Gallbladder ultrasound negative for cholelithiasis, cholecystitis , or biliary obstruction. - Hida scan-normal Hepatitis C - untreated Elevated liver enzymes Indirect hyperbilirubinemia- resolved Empiric treatment for scabies Hypertension Diverticulosis ETOH abuse- 1/2 pint per day x3 years Current smoker- 1/2 per day x40 years History of rectal bleeding currently no overt signs of GI bleed with stable hemoglobin Plan: F/u with GI for out-pt endoscopies and Hep C treatment Monitor labs Continue PPI Diet as tolerated Discussed need to quit drinking Patient seen in collaboration with Dr. Rose Subjective: Course reviewed with nursing staff Patient interviewed and examined All labs, imaging and other results reviewed The patient feels better today, no c/o n/v or abd pain Again discussed with patient need to f/u with GI as out-pt for further work-up and tx of Hep C Patient verbalized understanding and is agreeable PHYSICAL EXAMINATION: GENERAL: Well developed, well nourished, alert & oriented x 3, in no acute distress SKIN: Scabs currently being empirically treated for scabies EYES: Legally blind EARS/NOSE AND THROAT: Ears normal, nose normal, oropharynx normal NECK: Supple, no masses CHEST: Inspection within normal limits. CARDIOVASCULAR: Heart: Regular rate and rhythm RESPIRATORY: Lungs clear to auscultation and percussion, no wheezing, no rubs GASTROINTESTINAL AND LIVER: Abdomen: Soft, mild abdominal tenderness, non-disten ded, no hernias, no masses, no organomegaly, no ascites, no guarding, no rebound tenderness, normoactive bowel sounds. Rectal: Deferred. GENITOURINARY: not examined Result Diagram: 10/26/18 0545 10/26/18 0545 Results 24hrs Laboratory Tests Test 10/26/18 05:45 10/26/18 07:00 White Blood Count 4.5 L Red Blood Count 3.93 L Hemoglobin 12.2 Hematocrit 38.3 Mean Corpuscular Volume 97.5 Mean Corpuscular Hemoglobin 31.0 Mean Corpuscular Hemoglobin Concent 31.9 L Red Cell Distribution Width 13.4 Platelet Count 150 Mean Platelet Volume 9.9 Immature Granulocytes % 0.400 Neutrophils % 61.8 Lymphocytes % 27.6 Monocytes % 8.2 Eosinophils % 1.8 Basophils % 0.2 Nucleated Red Blood Cells % 0.0 Immature Granulocytes # 0.020 Neutrophils # 2.8 Lymphocytes # 1.2 Monocytes # 0.4 Eosinophils # 0.1 Basophils # 0.0 Nucleated Red Blood Cells # 0.0 Sodium Level 137 Potassium Level 5.0 Chloride Level 103 Carbon Dioxide Level 26 Anion Gap 8 Blood Urea Nitrogen 26 H Creatinine 1.03 H Est Glomerular Filtrat Rate mL/min 54 L Glucose Level 114 # Calcium Level 9.5 Magnesium Level 1.9 Total Bilirubin 0.4 Direct Bilirubin 0.00 Indirect Bilirubin 0.4 Aspartate Amino Transf (AST/SGOT) 397 H Alanine Aminotransferase (ALT/SGPT) 230 H Alkaline Phosphatase 55 Total Protein 8.1 Albumin 4.3 Globulin 3.80 H Albumin/Globulin Ratio 1.13 Lipase 127 Blood Gas Specimen Source Blood arterial Arterial Blood Date Drawn 10/26/2018 7:20:37 AM Arterial Blood pH (Temp corrected) 7.314 L Arterial Blood pCO2 (Temp correct) 43.6 Arterial Blood pO2 (Temp corrected) 59.7 L Arterial Blood HCO3 21.7 L Arterial Blood Base Excess -4.4 L Arterial Blood Oxygen Saturation 87.1 L Parveen Test ACCEPTAB Arterial Blood Gas Puncture Site Right Radial Arterial Blood Carboxyhemoglobin 0.4 Arterial Blood Methemoglobin 0.2 Blood Gas A-a O2 Differential 146.4 H Oxyhemoglobin Percent 86.6 L Blood Gas Temperature 37.0 Blood Gas Modality NASAL CANNULA FiO2 36.0 Blood Gas Notified Whom TM Blood Gas Notified Time 10/26/2018 7:29:10 AM Exam/Review of Systems Vital Signs Vitals Vital Signs Date Temp Pulse Resp B/P (MAP) Pulse Ox O2 O2 Flow FiO2 Time Delivery Rate 10/26/18 Simple 10.0 09:00 Mask 10/26/18 92 08:29 10/26/18 97.0 70 19 144/90 08:01 (108) Intake and Output 10/25/18 10/25/18 10/26/18 1515:00 23:00 07:00 IntakeIntake Total 720 ml 340 ml 120 ml BalanceBalance 720 ml 340 ml 120 ml Medications Medications Current Medications IV Flush (NS 3 ml) 3 ml PER PROTOCOL IV ; Start 10/24/18 at 05:30 Ondansetron HCl (Zofran Inj) 4 mg Q6H PRN IV NAUSEA AND/OR VOMITING Last administered on 10/25/18at 21:45; Admin Dose 4 MG; Start 10/24/18 at 05:30 Acetaminophen (Tylenol Tab) 650 mg Q6H PRN PO PAIN LEVEL 1-3 OR FEVER; Start 10/24/18 at 05:30 Acetaminophen/ Hydrocodone Bitart ([place] (5/325)) 1 tab Q6H PRN PO MODERATE PAIN LEVEL 4-6; Start 10/24/18 at 05:30 Acetaminophen/ Hydrocodone Bitart ([place] (5/325)) 2 tab Q6H PRN PO SEVERE PAIN LEVEL 7-10 Last administered on 10/26/18at 09:43; Admin Dose 2 TAB; Start 10/24/18 at 05:30 Albuterol/ Ipratropium (Duoneb) 3 ml Q2H RESP THERAPY PRN HHN SHORTNESS OF BREATH Last administered on 10/26/18at 01:58; Admin Dose 3 ML; Start 10/24/18 at 05:30 Ketorolac Tromethamine (Toradol) 30 mg Q6H PRN IV PAIN LEVEL 1-3; Start 10/24/18 at 05:30; Stop 10/27/18 at 05:29 Morphine Sulfate (morphine) 3 mg Q4H PRN IV SEVERE PAIN LEVEL 7-10 Last administered on 10/26/18at 05:45; Admin Dose 3 MG; Start 10/24/18 at 05:30 Thiamine HCl (Vitamin B1) 100 mg DAILY PO Last administered on 10/26/18at 09:43; Admin Dose 100 MG; Start 10/24/18 at 09:00 Folic Acid (Folic Acid) 1 mg DAILY PO ; Start 10/28/18 at 09:00 Multivitamins Therapeutic (Theragran) 1 tab DAILY PO ; Start 11/01/18 at 09:00 Enoxaparin Sodium (Lovenox) 40 mg DAILY SC Last administered on 10/26/18at 09:44; Admin Dose 40 MG; Start 10/25/18 at 09:00 Metoprolol Succinate (Toprol Xl) 50 mg DAILY PO Last administered on 10/26/18at 09:43; Admin Dose 50 MG; Start 10/24/18 at 18:30 Clonidine (Catapres) 0.1 mg Q4H PRN PO SBP GREATER THAN 160; Start 10/24/18 at 18:30 Pantoprazole (Protonix Tab) 40 mg BID@06,18 PO Last administered on 10/26/18at 05:45; Admin Dose 40 MG; Start 10/25/18 at 09:00 Oxymetazoline HCl (Afrin [place]) 2 spray BID NASAL Last administered on 10/26/18at 09:42; Admin Dose 2 SPRAY; Start 10/25/18 at 12:30 Miscellaneous Information (* Miscellaneous Pharmacy Order) selenium sulfide topic... ONCE XX ; Start 10/25/18 at 12:30; Status VICTORINO LEE Oct 26, 2018 11:04
--- NOTE | 2018-10-26 13:55 | PN ---
Date/Time of Note Date/Time of Note DATE: 10/26/18 TIME: 13:53 Assessment/Plan Lines/Catheters IV Catheter Type (from Nrs): Saline Lock Assessment/Plan Assessment/Plan 1. Abdominal pain with concern for cholecystitis versus hepatitis versus other: Ultrasound without evidence of cholecystitis; HIDA scan negative -Pain management -No surgical intervention necessary at this time; DC planning per medical team -Low-fat low-cholesterol diet 2. Hepatitis C history with elevated ALT/AST & hyperbilirubinemia: Elevated indirect bilirubin -GI consult noted> follow-up outpatient GI -Trend 3. Concern for scabies: Status post treatment -skin scraping 4. Hypertension -wt loss -Medical management 5. Obesity BMI: 32 -diet and exercise optimization -encourage weight loss 6. Diverticulosis without diverticulitis from outside imaging -Lifestyle/diet modification Thank you. Patient seen and examined in collaboration with Dr. Carrillo Dailey. Subjective 24 Hr Interval Summary Feels well. Abdominal pain improved. No fevers, chills, sob, congested cough, cp, palpitations, dumont, dizziness, nausea, vomiting, diarrhea, dysuria. Tolerating diet. + Bowel function. Exam/Review of Systems Vital Signs Vitals Vital Signs Date Temp Pulse Resp B/P (MAP) Pulse Ox O2 O2 Flow FiO2 Time Delivery Rate 10/26/18 Simple 10.0 09:00 Mask 10/26/18 92 08:29 10/26/18 97.0 70 19 144/90 08:01 (108) Intake and Output 10/25/18 10/25/18 10/26/18 1515:00 23:00 07:00 IntakeIntake Total 720 ml 340 ml 120 ml BalanceBalance 720 ml 340 ml 120 ml Exam Free Text/Dictation Constitutional: alert, oriented Psych: no complaints, nl mood/affect; No anxiety Head: normocephalic, atraumatic Eyes: nl conjunctiva, nl sclera (Right eye), other (Left eye enucleation); No icteric ENMT: nl external ears & nose, nl lips & teeth, nl nasal mucosa & septum, mucosa pink and moist Neck: supple, non-tender; No jvd Respiratory: normal air movement; No congested cough, No labored breathing Cardiovascular: regular rate and rhythm, nl pulses Gastrointestinal: soft, nontender; No distended Genitourinary - Female: nl external genitalia Musculoskeletal: nl extremities to inspection; No swelling Extremities: normal pulses Neurological: nl mental status, nl speech, nl strength Skin: other (Back and bilateral arm small lesions) Results Result Diagram: 10/26/18 0545 10/26/18 0545 ALISSA ERAZO NP Oct 26, 2018 13:55
--- NOTE | 2018-10-26 16:37 | PN ---
Date/Time of Note Date/Time of Note DATE: 10/26/18 TIME: 16:34 Assessment/Plan VTE Prophylaxis Risk score (from Ns)>0 risk: 4 SCD applied (from Ns): Yes Pharmacological prophylaxis: LMWH Lines/Catheters IV [facility]ter [facility]from [facility] Saline Lock Assessment/Plan Hospital Course SUBJECTIVE: Remains on a simple mask for hypoxia. OBJECTIVE: Physical Exam General: Adequately build 63 year-old female lying in bed in mild distress. HEENT: Normocephalic, atraumatic. Left eye is missing. Eyes: Anicteric sclerae, conjunctivae clear. ENT: Nasal septum midline, oral mucosa moist. Neck supple. Respiratory: Bilaterally diminished breath sounds. Use of accessory muscles of respiration. No adventitious breath sounds. Cardiovascular: S1, S2 heard. Regular rate and rhythm. Abdomen: Soft, nontender, and nondistended. Bowel sounds positive in all 4 quadrants. Genitourinary: Deferred. Extremities: No cyanosis no edema. Peripheral pulses palpable. Neurologic: The patient is awake, alert, and oriented. Labs & Vitals per chart ASSESSMENT & PLAN 63-year-old female with past medical history of left eye blindness, alcoholism, and hepatitis C who is currently homeless. The patient went to an outside emergency room because of abdominal pain and was found to have evidence of transaminitis with hyperbilirubinemia along with abdominal ultrasound suggesting cholecystitis. Therefore, the patient was transferred to [facility] for insurance reasons for further treatment and evaluation. 1. Abdominal pain. -Status post surgical evaluation. -HIDA scan negative for any common bile duct obstruction. -Continue symptomatic management. 2. Acute respiratory failure. -Hypoxic. -Etiology unclear. -Continue supplemental oxygen. -Start the patient on routine inhaled bronchodilators. -Obtain a bilateral lower extremity venous Doppler study to evaluate for any DVT. -Obtain a D-dimer. 3. Transaminitis with hyperbilirubinemia. -Most probably secondary to underlying hepatitis C. -Gastroenterology following. 4. Essential hypertension. -Continue antihypertensives. 5. Alcohol abuse. -Continue multivitamins. -Advised cessation. 6. Nicotine use. -Cessation advised. 7. Generalized skin lesions. -S/P empiric treatment with permethrin for any possible scabies. 8. Homeless status. -Being followed by public health social worker. 9. Fluids, electrolytes, and nutrition. -Low-cholesterol diet. 10. DVT prophylaxis. -Subcutaneous Lovenox. 11. Plan. -Patient was cleared by general surgery to be discharged home. -However, the patient is hypoxic. -Will evaluate the patient's underlying hypoxia. The patient was seen in collaboration with Dr. Talbot. Result Diagram: 10/26/18 0545 10/26/18 0545 Results 24hrs Laboratory Tests Test 10/26/18 05:45 10/26/18 07:00 White Blood Count 4.5 L Red Blood Count 3.93 L Hemoglobin 12.2 Hematocrit 38.3 Mean Corpuscular Volume 97.5 Mean Corpuscular Hemoglobin 31.0 Mean Corpuscular Hemoglobin Concent 31.9 L Red Cell Distribution Width 13.4 Platelet Count 150 Mean Platelet Volume 9.9 Immature Granulocytes % 0.400 Neutrophils % 61.8 Lymphocytes % 27.6 Monocytes % 8.2 Eosinophils % 1.8 Basophils % 0.2 Nucleated Red Blood Cells % 0.0 Immature Granulocytes # 0.020 Neutrophils # 2.8 Lymphocytes # 1.2 Monocytes # 0.4 Eosinophils # 0.1 Basophils # 0.0 Nucleated Red Blood Cells # 0.0 Sodium Level 137 Potassium Level 5.0 Chloride Level 103 Carbon Dioxide Level 26 Anion Gap 8 Blood Urea Nitrogen 26 H Creatinine 1.03 H Est Glomerular Filtrat Rate mL/min 54 L Glucose Level 114 # Calcium Level 9.5 Magnesium Level 1.9 Total Bilirubin 0.4 Direct Bilirubin 0.00 Indirect Bilirubin 0.4 Aspartate Amino Transf (AST/SGOT) 397 H Alanine Aminotransferase (ALT/SGPT) 230 H Alkaline Phosphatase 55 Total Protein 8.1 Albumin 4.3 Globulin 3.80 H Albumin/Globulin Ratio 1.13 Lipase 127 Blood Gas Specimen Source Blood arterial Arterial Blood Date Drawn 10/26/2018 7:20:37 AM Arterial Blood pH (Temp corrected) 7.314 L Arterial Blood pCO2 (Temp correct) 43.6 Arterial Blood pO2 (Temp corrected) 59.7 L Arterial Blood HCO3 21.7 L Arterial Blood Base Excess -4.4 L Arterial Blood Oxygen Saturation 87.1 L Parveen Test ACCEPTAB Arterial Blood Gas Puncture Site Right Radial Arterial Blood Carboxyhemoglobin 0.4 Arterial Blood Methemoglobin 0.2 Blood Gas A-a O2 Differential 146.4 H Oxyhemoglobin Percent 86.6 L Blood Gas Temperature 37.0 Blood Gas Modality NASAL CANNULA FiO2 36.0 Blood Gas Notified Whom TM Blood Gas Notified Time 10/26/2018 7:29:10 AM Exam/Review of Systems Vital Signs Vitals Vital Signs Date Temp Pulse Resp B/P (MAP) Pulse Ox O2 O2 Flow FiO2 Time Delivery Rate 10/26/18 88 Room Air 15:16 10/26/18 10.0 09:00 10/26/18 97.0 70 19 144/90 08:01 (108) Intake and Output 10/25/18 10/25/18 10/26/18 1515:00 23:00 07:00 IntakeIntake Total 720 ml 340 ml 120 ml BalanceBalance 720 ml 340 ml 120 ml Medications Medications Current Medications IV Flush (NS 3 ml) 3 ml PER PROTOCOL IV ; Start 10/24/18 at 05:30 Ondansetron HCl (Zofran Inj) 4 mg Q6H PRN IV NAUSEA AND/OR VOMITING Last adm inistered on 10/25/18at 21:45; Admin Dose 4 MG; Start 10/24/18 at 05:30 Acetaminophen (Tylenol Tab) 650 mg Q6H PRN PO PAIN LEVEL 1-3 OR FEVER; Start 10/24/18 at 05:30 Acetaminophen/ Hydrocodone Bitart ([place] (5/325)) 1 tab Q6H PRN PO MODERATE PAIN LEVEL 4-6; Start 10/24/18 at 05:30 Acetaminophen/ Hydrocodone Bitart ([place] (5/325)) 2 tab Q6H PRN PO SEVERE PAIN LEVEL 7-10 Last administered on 10/26/18at 09:43; Admin Dose 2 TAB; Start 10/24/18 at 05:30 Albuterol/ Ipratropium (Duoneb) 3 ml Q2H RESP THERAPY PRN HHN SHORTNESS OF BREATH Last administered on 10/26/18at 01:58; Admin Dose 3 ML; Start 10/24/18 at 05:30 Ketorolac Tromethamine (Toradol) 30 mg Q6H PRN IV PAIN LEVEL 1-3; Start 10/24/18 at 05:30; Stop 10/27/18 at 05:29 Morphine Sulfate (morphine) 3 mg Q4H PRN IV SEVERE PAIN LEVEL 7-10 Last admin istered on 10/26/18at 13:04; Admin Dose 3 MG; Start 10/24/18 at 05:30 Thiamine HCl (Vitamin B1) 100 mg DAILY PO Last administered on 10/26/18at 09:43; Admin Dose 100 MG; Start 10/24/18 at 09:00 Folic Acid (Folic Acid) 1 mg DAILY PO ; Start 10/28/18 at 09:00 Multivitamins Therapeutic (Theragran) 1 tab DAILY PO ; Start 11/01/18 at 09:00 Enoxaparin Sodium (Lovenox) 40 mg DAILY SC Last administered on 10/26/18at 09:44; Admin Dose 40 MG; Start 10/25/18 at 09:00 Metoprolol Succinate (Toprol Xl) 50 mg DAILY PO Last administered on 10/26/18at 09:43; Admin Dose 50 MG; Start 10/24/18 at 18:30 Clonidine (Catapres) 0.1 mg Q4H PRN PO SBP GREATER THAN 160; Start 10/24/18 at 18:30 Pantoprazole (Protonix Tab) 40 mg BID@06,18 PO Last administered on 10/26/18at 05:45; Admin Dose 40 MG; Start 10/25/18 at 09:00 Oxymetazoline HCl (Afrin [place]) 2 spray BID NASAL Last administered on 10/26/18at 09:42; Admin Dose 2 SPRAY; Start 10/25/18 at 12:30 Non-Formulary Medication SHAMPOO SCALP TW... TuFr@0900 TOP ; Start 10/27/18 at 09:00 Albuterol/ Ipratropium (Duoneb) 3 ml Q6HWA RESP THERAPY HHN ; Start 10/26/18 at 20:00 JAVIER EASTMAN NP Oct 26, 2018 16:37
[2018-10-26 20:00] VITALS: BP 157/90; PULSE 67; RESP 18
[2018-10-26] MEDS ORDERED: ALBUTEROL/IPRATROPIUM (NEB) 3 ML AMP HHN SCH (20:00)
[2018-10-27 02:35] VITALS: BP 152/73; PULSE 79; RESP 16
--- NOTE | 2018-10-27 07:39 | DS ---
Date/Time of Note Date/Time of Note DATE: 10/27/18 TIME: 07:39 Discharge Summary Admission/Discharge Info Admit Date/Time Oct 24, 2018 at 04:22 Discharge Date/Time Oct 27, 2018 at 03:45 Left AGAINST MEDICAL ADVICE. Discharge Diagnosis 1. Acute abdominal pain. 2. Acute respiratory failure (hypoxic). 3. Transaminitis with hyperbilirubinemia. 4. Hepatitis C. 5. Essential hypertension. 6. Alcohol abuse. 7. Nicotine use. 8. Generalized skin lesions. 9. Homeless status. 10. Left eye blindness. Patient Condition: Guarded Consults 1. Carrillo Dailey MD, General Surgery. 2. Sealm Rose MD, Gastroenterology. Procedures HIDA Scan IMPRESSION: No scintigraphic evidence to suggest the presence of common bile or cystic ducts obstruction. Gallbladder US IMPRESSION: No evidence of cholelithiasis, cholecystitis or biliary obstruction. Poor visualization of pancreas. B/L LE Venous Doppler Study IMPRESSION: 1. No evidence of deep vein thrombosis. CXR IMPRESSION: No radiographic evidence of acute cardiopulmonary disease. Cardiomegaly. Hx of Present Illness This is a 63-year-old female with past medical history of left eye blindness, alcoholism, and hepatitis C who is currently homeless. The patient went to an outside emergency room because of abdominal pain and was found to have evidence of transaminitis with hyperbilirubinemia along with ultra blood ultrasound suggesting cholecystitis. Therefore, the patient was transferred to [facility] for insurance reasons for further treatment and evaluation. Hospital Course The patient was admitted to inpatient setting. A general surgery consult and gastroenterology consult was obtained. The patient was kept n.p.o. She was provided with adequate pain control. The patient underwent a gallbladder ultrasound that was negative for any cholelithiasis, cholecystitis, or biliary obstruction. The patient underwent a nuclear medicine HIDA scan that was negative for any common bile cystic duct obstruction. Therefore, the surgery team recommended no surgical intervention. The patient was started on a low- cholesterol diet. The patient continued to have abdominal pain although inconsistent. The patient was maintained on proton pump inhibitor therapy as per gastroenterology recommendations. Meanwhile the patient was noted to have transaminitis with hyperbilirubinemia. The patient has a history of hepatitis C. The patient needs eventual treatment as outpatient. The patient is also a current drinker. The patient's transaminitis with hyperbilirubinemia could be secondary to her hepatitis C along with history of alcoholism. The patient has underlying essential hypertension. She was maintained on antihypertensives for the same. The patient was maintained on multivitamins for her history of alcohol abuse. She is also a nicotine user. She was advised on cessation of nicotine. The patient was also noticed to have generalized skin lesions. The patient was given empiric treatment with permethrin for any possible scabies. The patient is homeless. The patient was being followed by a social services analyst. The patient was noticed to be hypoxic on the night of 10/25/2018. The patient had an ABG drawn on the morning of 10/26/2018 that showed significant hypoxia with a PO2 level of 59.7 on low flow oxygen. The etiology of this remains unclear. Therefore, the patient was maintained on supplemental oxygen and was started on routine inhaled bronchodilators on the top of PRN inhaled bronchodilators. The patient underwent a venous Doppler study of the bilateral lower extremities to evaluate for any DVT and this was negative for any DVT. The patient also underwent a d-dimer that was high. Before further testing and evaluation of her hypoxia could be done she wanted to leave the hospital AGAINST MEDICAL ADVICE. She was instructed on the consequences of leaving the hospital AGAINST MEDICAL ADVICE including the possibility of . Nevertheless, the patient left the hospital AGAINST MEDICAL ADVICE. No discharge instructions were provided and no follow-up plan could be confirmed since the patient left the hospital AGAINST MEDICAL ADVICE. At this time I would like to thank all the consultants for seeing the patient and providing clinical recommendations. The patient was seen in collaboration with Dr. Talbot. Home Meds Active Scripts [Thiamine] 100 MG TAB No Conflict Check, 100 MG PO DAILY for 30 Days, #30 Prov:KELLEN FAYE MD 08/07/17 Multivitamins* (Theragran*) 1 Tab Tab, 1 TAB PO DAILY for 30 Days, #30 TAB Prov:KELLEN FAYE MD 08/07/17 Folic Acid* (Folic Acid*) 1 Mg Tablet, 1 MG PO DAILY for 30 Days, #30 TAB Prov:KELLEN FAYE MD 08/07/17 Levofloxacin* (Levaquin*) 250 Mg Tablet, 250 MG PO DAILY@06 for 8 Days, #8 TAB Prov:KELLEN FAYE MD 08/07/17 Nifedipine* (Nifedipine ER*) 30 Mg Tablet.sa, 30 MG PO DAILY, #30 TAB.SA Prov:PORTIA GLOVER MD 07/03/17 Hydrochlorothiazide* (Hydrochlorothiazide*) 25 Mg Tab, 25 MG PO DAILY, #30 TAB Prov:PORTIA GLOVER MD 07/03/17 Reported Medications Vitamin B Complex (Vitamin B Complex) 1 Each Capsule, 1 EACH PO DAILY, CAP 07/15/17 Follow-up Plan No follow-up plan could be confirmed since the patient left the hospital AGAINST MEDICAL ADVICE. Primary Care Provider [facility] Time spent on discharge: < 30 minutes Pending Labs Laboratory Tests Test 10/26/18 17:34 D-Dimer 1691.13 ng/ml (<460) D-Dimer Comment JAVIER EASTMAN NP Oct 27, 2018 07:39
[2018-10-27] MEDS ORDERED: SELENIUM TOP SCH (09:00)
[2018-10-27] MEDS ORDERED: [UNRECOGNIZED DRUG - OTHER] TOP SCH (09:00)
[2018-10-28] MEDS ORDERED: FOLIC ACID 1 MG TAB PO SCH (09:00)
[2018-11-01] MEDS ORDERED: MULTIVITAMINS THERAPEUTIC TAB PO SCH (09:00)
== END 2018-10-27 03:45 | disposition left against medical advice (07) | DRG 391 ==
LOC: PP2 04:22
PROVIDERS: ADMIT Internal Medicine; ATTEND Internal Medicine
DX: R10.9 Unspecified abdominal pain (principal); J96.01 Acute respiratory failure with hypoxia; H54.7 Unspecified visual loss; F10.20 Alcohol dependence, uncomplicated; K57.90 Diverticulosis of intestine, part unspecified, without perforation or abscess without bleeding; E66.9 Obesity, unspecified; Z68.32 Body mass index [BMI] 32.0-32.9, adult; I10 Essential (primary) hypertension; F17.200 Nicotine dependence, unspecified, uncomplicated; K70.30 Alcoholic cirrhosis of liver without ascites; Z59.0 Homelessness; H54.40 Blindness, one eye, unspecified eye; K76.9 Liver disease, unspecified; R09.81 Nasal congestion; B19.20 Unspecified viral hepatitis C without hepatic coma; B86 Scabies; E80.6 Other disorders of bilirubin metabolism; Z87.19 Personal history of other diseases of the digestive system; R74.0 Nonspecific elevation of levels of transaminase and lactic acid dehydrogenase [LDH]; R62.7 Adult failure to thrive
CPT/HCPCS: 36600; 71045; 76705; 78226; 80053; 80307; 81001; 82803; 83690; 83735; 84100; 85025; 85378; 85610; 86703; 86704; 86709; 86803; 87081; 87086; 87338; 87340; 90686; 93970; 94664; A9537; J0744; J1644; J1650; J2270; J2405; J3475; J7030